=== PATIENT | male | born 1950 | race Caucasian/White ===

== ENCOUNTER 2017-06-11 08:07 | Inpatient (IN) | payer MEDICARE, BC ==
[~2017-06-11] VITALS: Ht 180.3 cm; Wt 91.5 kg
--- NOTE | ~2017-06-11 | CN ---
PATIENT NAME:KRUNAL TAY MEDICAL RECORD: [id number] : 54 LOCATION:D. D.2110 ADMIT DATE: 06/11/17 ACCOUNT: [id number] CONSULTING PHYSICIAN: GALINA CUENCA MD REFERRING PHYSICIAN: JESSICA KARIMI MD DATE OF CONSULTATION: 06/11/2017 CARDIOLOGY CONSULTATION DIAGNOSES: 1. Syncope. 2. Atrial fibrillation. 3. Aortic valve replacement, tissue prosthesis. 4. Hypertension. HISTORY OF PRESENT ILLNESS: Mr. Tay is known to us with a past history of atrial fibrillation, rate controlled with carvedilol, who presents with an episode of syncope. He went to the bathroom, he was washing his hands, and was found down by his . He was actually only out for a few seconds. He did not have any chest pain or chest discomfort. His EKG is with no ST-T changes. He recently had an echocardiogram in our office revealing a normal ejection fraction of 55%. Tissue valve is in the mitral and aortic position with normal structure and function; however, there was severe aortic insufficiency. REVIEW OF SYSTEMS: The patient reports easy bruising but reports no swollen glands. The patient reports no fever, no night sweats, no significant weight gain, no significant weight loss. No significant exercise tolerance. The patient reports no dry eyes, no irritation, no vision change. Patient reports no difficulty hearing and no ear pain. Patient reports no frequent nose bleeds or nose and sinus problems. Patient reports on arm pain on exertion. No shortness of breath while lying down. No history of heart murmur. Patient reports no cough, no wheezing or coughing up blood. Patient reports no abdominal pain, no vomiting. Normal appetite. No diarrhea and not vomiting blood. No nausea and no constipation. Patient reports no incontinence. No difficulty urinating. No hematuria. No increased frequency. Patient reports no muscle aches. No weakness, no arthralgias, no back pain. No swelling of the extremities. Patient reports no abnormal mole, no jaundice, no rashes. Reports no loss of consciousness. No weakness and no numbness. No seizures, dizziness, or headaches. The patient reports no depression, no sleep disturbance, feeling safe in a relationship and no alcohol abuse. Patient reports on fatigue. Reports no runny nose or sinus pressure. No itching, no hives, and no frequent sneezing. PHYSICAL EXAMINATION: GENERAL APPEARANCE: Well-nourished, well-developed, appears stated age. Level of distress, comfortable. PSYCHIATRIC: Mental status, alert, normal affect. Orientation, oriented to time, place and person. EYES: Lids and conjunctiva, noninjected. No discharge, no pallor. ENT: Lips, teeth, gums, normal dentition. Oropharynx, no cyanosis, no pallor. NECK: Carotid arteries, bilateral normal upstroke, no bruits, no thrills. JUGULAR VEINS: No jugular venous pressure or distention. CERVICAL LYMPH NODES: Nontender, nonenlarged. THYROID: Not enlarged. Nontender. No nodules. LUNGS: Respiratory effort, unlabored. CONSULT REPORT [id number] KRUNAL TAY CHEST: Normal curvature. No thoracic deformity. No chest wall tenderness. Percussion, resonant. Auscultation, clear. No wheezes, no rales, no rhonchi. CARDIOVASCULAR: Precordial exam, nondisplaced. No heaves or pericardial thrills. Rate and rhythm, regular. Heart sounds, normal S1, normal S2. No S3, no gallop, no rub. Systolic murmur, not heard. Diastolic murmur, not heard. EXTREMITIES: No cyanosis, no edema. Peripheral pulses, full and equal in all extremities, except as noted. No bruits appreciated. ABDOMEN: Soft, nondistended. Normal aorta. No bruit. Nontender. No masses. Liver, nontender, no hepatomegaly. Spleen, nontender, no splenomegaly. MUSCULOSKELETAL: No joint tenderness. No joint swelling. No erythema. NEUROLOGICAL: Normal gait, normal strength, normal tone. SKIN: Warm and dry. OVERALL IMPRESSION: At this time, syncope, unknown etiology, very well may have been dysrhythmic in nature. We would agree with admitting for telemetry monitoring for at least overnight. The aortic insufficiency itself would not cause syncope and he is overall asymptomatic from the aortic insufficiency. At this time, as long as significant dysrhythmias were present and no bradycardia is present, no other cardiac workup or treatment is necessary. TRANSINT:[id number] Voice Confirmation ID: [id number] DOCUMENT ID: [id number] GALINA CUENCA MD at 1202 CC: [id number] DICTATION DATE: 06/11/17 1340 DIRECTOR OF WORKFORCE DEVELOPMENT: 06/11/17 1408 ADM IN [facility] [address] [place] [address]
[~2017-06-11 08:07] MED LIST: BAYER CHEWABLE81 MG PO; COREG12.5 MG PO; CYMBALTA30 MG PO; DURAGESIC1 PATCH .7 TRANSDERM; HYDROCODON-ACE1 EAC7 PO; LIPITOR10 MG; LOPRESSOR25 MG PO; MULTIPLE VITAMI1 TA1 PO; PROSCAR5 MG PO; TIKOSYN500 MCG PO; XARELTO15 MG PO
[2017-06-11 08:39] LABS: BASOPHILS 0.4 % (0-2); EOSINOPHILS 3.7 % (0-7); HEMATOCRIT 40.2 % (42.0-54.0); HEMOGLOBIN 13.4 g/dL (13.5-17.5); IMMATURE GRANULOCYTES 0.3 % (0-5); LYMPHOCYTES 15.4 % (15-50); MCHC 33.3 g/dL (31.0-37.0); MCV 90.1 fL (80.0-100.0); MONOCYTES 8.8 % (2-11); NEUTROPHILS 71.4 % (40-80); RBC 4.46 10x6/uL (4.20-6.10); RDW 16.4 % (11.5-14.5); WBC 9.6 10x3/uL (4.8-10.8)
[2017-06-11 08:44] LABS: PLATELET COUNT 161 10x3/uL (130-400)
[2017-06-11 09:13] LABS: ALBUMIN 3.9 g/dL (3.4-5.0); ALKALINE PHOSPHATASE 71 U/L (46-116); ALT (SGPT) 56 U/L (10-68); BILIRUBIN - TOTAL 2.84 mg/dL (0.2-1.3); CALC OSMOLALITY 281 mosm/kg (275-300); CALCIUM 9.1 mg/dL (8.5-10.1); CARBON DIOXIDE 24.7 mmol/L (21.0-32.0); CHLORIDE - SERUM 106 mmol/L (98-107); GLUCOSE 110 mg/dL (74-106); POTASSIUM - SERUM 4.1 mmol/L (3.5-5.1); SODIUM 140 mmol/L (136-145); UREA NITROGEN 19 mg/dL (7-18); eGFR NON AFRICAN AMERICAN 80 mL/min (90-120)
[2017-06-11 09:20] LABS: APTT 37.1 SECONDS (22.8-39.4)
[2017-06-11 09:32] LABS: INR 1.68 (0.85-1.17); PROTIME 19.3 SECONDS (11.6-15.0)
[2017-06-11 09:33] LABS: D-DIMER-QUANTITATIVE 0.56 ug/mLFEU (0.20-0.54)
[2017-06-11 09:36] LABS: CKMB 2.6 U/L (0.0-3.6); CREATINE KINASE 111 UL (21-232); PRO BNP 1358 pg/mL (0-125); TROPONIN-I 0.034 ng/mL (0.000-0.060)
[2017-06-11 12:07] LABS: CKMB 2.8 U/L (0.0-3.6); CREATINE KINASE 117 UL (21-232); TROPONIN-I 0.037 ng/mL (0.000-0.060)
[2017-06-11 15:06] VITALS: Ht 180.3 cm; Wt 91.5 kg
[2017-06-11 17:48] LABS: CKMB 3.2 U/L (0.0-3.6); CREATINE KINASE 119 UL (21-232)
[2017-06-11 23:31] LABS: CKMB 2.3 U/L (0.0-3.6); CREATINE KINASE 112 UL (21-232); TROPONIN-I < 0.017 ng/mL (0.000-0.060)
[2017-06-12 04:00] VITALS: BP 105/56
[2017-06-12 04:40] LABS: BASOPHILS 0.3 % (0-2); EOSINOPHILS 3.8 % (0-7); HEMATOCRIT 36.8 % (42.0-54.0); IMMATURE GRANULOCYTES 0.3 % (0-5); LYMPHOCYTES 23.8 % (15-50); MCH 29.7 pg (26.0-34.0); MCHC 32.6 g/dL (31.0-37.0); MCV 91.1 fL (80.0-100.0); MEAN PLATELET VOLUME 10.1 fL (7.4-10.4); MONOCYTES 9.7 % (2-11); NEUTROPHILS 62.1 % (40-80); PLATELET COUNT 141 10x3/uL (130-400); RBC 4.04 10x6/uL (4.20-6.10); RDW 16.3 % (11.5-14.5)
[2017-06-12 05:17] LABS: ALBUMIN 3.5 g/dL (3.4-5.0); ALKALINE PHOSPHATASE 65 U/L (46-116); ALT (SGPT) 45 U/L (10-68); BILIRUBIN - TOTAL 2.32 mg/dL (0.2-1.3); CALC OSMOLALITY 269 mosm/kg (275-300); CALCIUM 8.7 mg/dL (8.5-10.1); CARBON DIOXIDE 24.2 mmol/L (21.0-32.0); CHLORIDE - SERUM 101 mmol/L (98-107); CREATININE - SERUM 0.8 mg/dL (0.6-1.3); GLUCOSE 90 mg/dL (74-106); POTASSIUM - SERUM 3.9 mmol/L (3.5-5.1); PROTEIN - SERUM 7.1 g/dL (6.4-8.2); SODIUM 134 mmol/L (136-145); UREA NITROGEN 19 mg/dL (7-18); eGFR NON AFRICAN AMERICAN > 90 mL/min (90-120)
[2017-06-12 09:47] VITALS: BP 112/59
[2017-06-12 12:42] VITALS: BP 98/73
[2017-06-12 18:13] VITALS: BP 129/72
[2017-06-12 21:35] VITALS: BP 111/69
[2017-06-13 01:24] VITALS: BP 97/58
[2017-06-13 05:58] LABS: BASOPHILS 0.4 % (0-2); EOSINOPHILS 4.2 % (0-7); HEMATOCRIT 37.6 % (42.0-54.0); HEMOGLOBIN 12.6 g/dL (13.5-17.5); IMMATURE GRANULOCYTES 0.3 % (0-5); LYMPHOCYTES 21.8 % (15-50); MCH 30.1 pg (26.0-34.0); MCHC 33.5 g/dL (31.0-37.0); MCV 89.7 fL (80.0-100.0); MEAN PLATELET VOLUME 10.3 fL (7.4-10.4); MONOCYTES 11.5 % (2-11); NEUTROPHILS 61.8 % (40-80); PLATELET COUNT 135 10x3/uL (130-400); RBC 4.19 10x6/uL (4.20-6.10); RDW 16.3 % (11.5-14.5); WBC 7.2 10x3/uL (4.8-10.8)
[2017-06-13 06:30] VITALS: BP 103/61
[2017-06-13 06:32] LABS: ALBUMIN 3.6 g/dL (3.4-5.0); ALKALINE PHOSPHATASE 63 U/L (46-116); ALT (SGPT) 46 U/L (10-68); CALC OSMOLALITY 280 mosm/kg (275-300); CALCIUM 8.8 mg/dL (8.5-10.1); CARBON DIOXIDE 23.2 mmol/L (21.0-32.0); CHLORIDE - SERUM 106 mmol/L (98-107); CREATININE - SERUM 0.8 mg/dL (0.6-1.3); GLUCOSE 94 mg/dL (74-106); POTASSIUM - SERUM 3.9 mmol/L (3.5-5.1); PROTEIN - SERUM 7.5 g/dL (6.4-8.2); SODIUM 140 mmol/L (136-145); UREA NITROGEN 18 mg/dL (7-18); eGFR NON AFRICAN AMERICAN > 90 mL/min (90-120)
[2017-06-13 09:10] VITALS: BP 129/72
[2017-06-13 12:42] VITALS: BP 128/76
[2017-06-13 16:26] VITALS: BP 106/67
[2017-06-13 20:43] VITALS: BP 121/56
[2017-06-14 00:30] VITALS: BP 117/67
[2017-06-14 09:19] VITALS: BP 113/76
[2017-06-14 11:39] VITALS: BP 122/77
[2017-06-14 15:32] VITALS: BP 116/63
[2017-06-14 19:00] VITALS: BP 153/63
[2017-06-15 04:00] VITALS: BP 99/61
[2017-06-15 08:14] VITALS: BP 119/76
[2017-06-15 11:53] VITALS: BP 98/54
[2017-06-15] MEDS ORDERED: COREG12.5 MG PO (13:36)
== END 2017-06-15 15:01 | disposition home or self-care (01) | DRG 310 ==
LOC: D.ER 08:07 → D.EDHOLD 10:37 → D.M2 10:37
PROVIDERS: Family Medicine; Internal Medicine Nephrology
DX: I49.5 Sick sinus syndrome (principal); Z79.01 Long term (current) use of anticoagulants; I42.9 Cardiomyopathy, unspecified; Z95.2 Presence of prosthetic heart valve; I10 Essential (primary) hypertension; E80.6 Other disorders of bilirubin metabolism; E78.5 Hyperlipidemia, unspecified

== ENCOUNTER 2017-09-06 11:32 | Inpatient (IN) | payer MEDICARE, BC ==
[~2017-09-06] VITALS: Ht 180.3 cm; Wt 104.6 kg
[2017-09-06] VITALS (14 sets, daily range): BP systolic 88–132; BP diastolic 52–76; BMI 29.7
--- NOTE | ~2017-09-06 | HP ---
PATIENT: KRUNAL TAY MEDICAL RECORD: [id number] ACCOUNT: [id number] LOCATION:[facility] TomasaCV06 : 54 ADMISSION DATE: 09/06/17 HISTORY AND PHYSICAL EXAMINATION DIAGNOSES: 1. Ventricular tachycardia arrest. 2. Valvular heart disease, status post valve replacement. HISTORY OF PRESENT ILLNESS: Mr. Tay has no history of ischemic heart disease. He has been having episodes of syncope. He presented to the Emergency Room with being episodes of lightheadedness while in the Emergency Room and on the monitor, he had ventricular tachycardia degenerating into V-fib and recurrent syncope, with this he received 1 shock restoring sinus rhythm. He has sinus bradycardia in the 60 range at this point. He does not have a history of ischemic heart disease. He had a cardiac catheterization prior to valve replacement approximately 10 years ago, but has not had a workup for ischemic heart disease. PHYSICAL EXAMINATION: GENERAL APPEARANCE: Well-nourished, well-developed, appears stated age. Level of distress, comfortable. PSYCHIATRIC: Mental status, alert, normal affect. Orientation, oriented to time, place and person. EYES: Lids and conjunctiva, noninjected. No discharge, no pallor. ENT: Lips, teeth, gums, normal dentition. Oropharynx, no cyanosis, no pallor. NECK: Carotid arteries, bilateral normal upstroke, no bruits, no thrills. JUGULAR VEINS: No jugular venous pressure or distention. CERVICAL LYMPH NODES: Nontender, nonenlarged. THYROID: Not enlarged. Nontender. No nodules. LUNGS: Respiratory effort, unlabored. CHEST: Normal curvature. No thoracic deformity. No chest wall tenderness. Percussion, resonant. Auscultation, clear. No wheezes, no rales, no rhonchi. CARDIOVASCULAR: Precordial exam, nondisplaced. No heaves or pericardial thrills. Rate and rhythm, regular. Heart sounds, normal S1, normal S2. No S3, no gallop, no rub. Systolic murmur, not heard. Diastolic murmur, not heard. EXTREMITIES: No cyanosis, no edema. Peripheral pulses, full and equal in all extremities, except as noted. No bruits appreciated. ABDOMEN: Soft, nondistended. Normal aorta. No bruit. Nontender. No masses. Liver, nontender, no hepatomegaly. Spleen, nontender, no splenomegaly. MUSCULOSKELETAL: No joint tenderness. No joint swelling. No erythema. NEUROLOGICAL: Normal gait, normal strength, normal tone. SKIN: Warm and dry. OVERALL IMPRESSION: V-tach to V-fib arrest, we will load him with Cordarone. As long as he does not become too bradycardic, we will plan for cardiac catheterization in the a.m. as he took Xarelto today, we will hold the Xarelto. TRANSINT:[id number] Voice Confirmation ID: [id number] DOCUMENT ID: [id number] HISTORY AND PHYSICAL [id number] KRUNAL TAY JEFFREY MD at 1705 CC: [id number] DICTATION DATE: 09/06/17 1244 ARMORER TECHNICIAN: 09/06/17 1317 ADM IN [facility] [address] [place] [address]
--- NOTE | ~2017-09-06 | OP ---
PATIENT NAME: KRUNAL JAMES MEDICAL RECORD: [id number] :54 LOCATION:[facility] ADMISSION DATE:09/06/17 SURGEON: GALINA CUENCA MD DATE OF OPERATION: 09/08/2017 PROCEDURES: 1. PTCA stent left circumflex. 2. Selective coronary angiography. 3. DC cardioversion. INDICATION: Angina, ventricular tachycardia, atrial fibrillation, coronary artery disease, and cardiomyopathy. PROCEDURE IN DETAIL: After informed consent was obtained and after detailed explanation of risks, benefits as well as alternative therapies, the patient elected to proceed with angiogram and angioplasty. The right femoral area was prepped and draped in normal sterile fashion. Right femoral artery was cannulated via modified Seldinger technique with placement of 6-Swedish sheath. All catheters exchanged through this sheath. FINDINGS: The left circumflex has a 70% to 80% stenosis in the mid vessel. This was addressed with a 2.75 x 12 mm Integrity stent. Result was 0% residual stenosis. The patient was in atrial fibrillation. He received 1 shock at 275 joules restoring sinus rhythm. OVERALL IMPRESSION: 1. Successful PTCA stent of the left circumflex going from 80% initial stenosis to 0% residual. 2. Successful DC cardioversion from atrial fibrillation to sinus rhythm. TRANSINT:[id number] Voice Confirmation ID: [id number] DOCUMENT ID: [id number] GALINA CUENCA MD at 1705 CC: [id number] DICTATION DATE: 09/08/17 1003 RADIOLOGY PHYSICIAN: 09/08/17 1249 ADM IN [place] [id number] [place] [address]
--- NOTE | ~2017-09-06 | EC ---
PATIENT:KRUNAL JAMES DATE OF SERVICE: 09/06/17 SEX: M MEDICAL RECORD: [id number] DATE OF : 54 LOCATION:[place] [address] AGE OF PATIENT: 66 ADMISSION DATE: 09/06/17 REFERRING PHYSICIAN: INTERPRETING PHYSICIAN: GALINA LOCKHART MD ECHOCARDIOGRAM REPORT ECHO CHARGES 4 ECHO COMPLETE Date: 09/07 CLINICAL DIAGNOSIS: V TACH HX OF AVR/MVR ECHOCARDIOGRAPHIC MEASUREMENTS (adult normal given) AC root (d.<3.7cm) 4.4 cm LV Septum d (<1.2 cm> 1.6 cm Valve Excursion 1.8 cm LV Septum (systole) 1.9 cm Left Atria (s.<4.0cm> 4.9 cm LVPW d(<1.2cm) 1.6 cm RV (d.<2.3cm) 6.8 cm LVPW (sytole) 2.1 cm LV diastole(<5.6CM) 6.4 cm MV E-F(>70mm/sec) cm LV systole 5.1 cm LVOT Diameter 2.3 cm MV exc.(>10mm) 1.7 cm Est.ejection fraction (50-75%) % DOPPLER: LVIT cm/sec A 165 cm/sec E 78.0 cm/sec LA cm/sec RVSP 64 mmHg LVOT 112 cm/sec AOP1/2T m/s Asc. Ao 211 cm/sec RVOT 61 cm/sec RA cm/sec PA 154 cm/sec AV Gradient Peak 17.76mmHg AV Mean 9.48 mmHg AV Area 2.2 cm MV Gradient Peak 26.68mmHg MV Mean 8.01 mmHg MV Area cm COMMENTS: Pharmacy Clinical Specialist: Karine PALACIO Co Founder And Chief Strategy Officer: 1 Dr. Lockhart TAPE# PACS Pericardial Effusion Y DATE OF SERVICE: 09/07/2017 FINDINGS: 1. Left ventricular chamber size is mildly dilated. Left ventricular systolic function is moderately reduced. Overall ejection fraction in the 30% range. 2. Left atrium, right atrium, and right ventricular chamber sizes are zpbu-qs-psdwrwxcqa dilated. 3. Valvular structures: Aortic and mitral valves are replaced with tissue prosthesis. Both have normal structure and function in this position. 4. Doppler interrogation reveals dtarcfrh-gv-jhpxgl tricuspid regurgitation. ECHOCARDIOGRAM REPORT [id number] KRUNAL JAMES No other valvular insufficiency or stenosis. Pulmonary systolic pressure is elevated, estimated at 64 mmHg. 5. No evidence of pericardial effusion or left ventricular thrombus. TRANSINT:[id number] Voice Confirmation ID: [id number] DOCUMENT ID: [id number] GALINA LOCKHART MD at 1705 CC: [id number] DICTATION DATE: 09/08/17 1248 GROUP CAPTAIN: 09/08/17 1310 ADM IN [place] [address] [place] [address]
--- NOTE | ~2017-09-06 | HEMODYNAMI ---
PATIENT:KRUNAL JAMES MEDICAL RECORD: [id number] : 54 LOCATION[facility] [address] [id number] ADMISSION DATE: 09/06/17 Generatedon:09/08/201710:04 Patient name: KRUNAL JAMES Patient #: [id number] SSN: : 1950 Date of study: 09/08/2017 Page: Of Hemodynamic Procedure Report Patient Data Patient Demographics Procedure consent was obtained First Name: KRUNAL Gender: Male Last Name: ERIKA : 1950 Patient #: [id number] Age: 66 year(s) Race: Unknown Additional ID: [id number] Contact details Address: [address] [place] [address] State: [place] City: [place] Zip code: [address] Past Medical History Allergies: No known allergies Admission Admission Data Admission Date: 09/06/2017 Admission Time: 14:17 Admit Source: Other Room #: D[facility] Lab Results Lab Result Date: 09/07/2017 Lab Result Time: 2:41 Biochemistry Name Units Result Min Max BUN mg/dl 17 --(---*)-- 7 18 Creatinine mg/dl 1.2 --(---*)-- 0.6 1.3 CBC Name Units Result Min Max Hematocrit % 39.7 -*(----)-- 42 54 Hemoglobin g/dl 13 -*(----)-- 13.5 17.5 Coagulation Name Units Result Min Max INR units 1.84 --(----)-* 0.85 1.17 PT sec 20.7 --(----)-* 11.6 15 Procedure Procedure Types Cath Procedure Diagnostic Procedure Cardioversion External PCI Procedure Coronary Stent Coronary Stent Initial Procedure Description Procedure Date Procedure Date: 09/08/2017 Procedure Start Time: 9:47 Procedure End Time: 10:03 Procedure Staff Name Function Sourav Lockhart MD Performing Physician Carrillo Calle RT Monitor Raymond Estrada RN Nurse Angela Rudd RT Scrub Procedure Data Cath Procedure Fluoroscopy Diagnostic fluoroscopy Total fluoroscopy Time: 1.6 time: 1.6 min min Diagnostic fluoroscopy Total fluoroscopy dose: 129 dose: 129 mGy mGy Contrast Material Contrast Material Type Amount (ml) Isovue 300 40 Entry Location Entry Primary Successful Side Size Upsize Upsize Entry Closure Succes sful Closure Location (Fr) 1 (Fr) 2 (Fr) Remarks Device Remarks Femoral Left 6 Fr Exoseal artery Short Estimated blood loss: 10 ml Procedure Complications No complications Procedure Medications Medication Administration Route Dosage Oxygen NC 2 l/min Heparin Flush Bag added to field 2 bags (1000units/500ml NS) 0.9% NaCl I.V. 100 ml/hr Fentanyl I.V. 50 mcg Versed I.V. 1 mg Fentanyl I.V. 50 mcg Versed I.V. 1 mg Fentanyl I.V. 50 mcg Heparin Bolus I.V. 4000 units Fentanyl I.V. 50 mcg Hemodynamics Rest Heart Rate: 116 (bpm) Snapshots Pre Cath Intra NCS Post Cath Vital Signs Time Heart Resp SPO2 etCO2 NIBP Rhythm Pain Sedation Rate (ipm) (%) (mmHg) (mmHg) Status Level (bpm) 9:13:52 111 28 99 0 99/81(88) NSR 0 (11) 10(A) , No pain 9:18:28 106 21 98 0 110/70(94) NSR 0 (11) 10(A) , No pain 9:22:46 113 20 97 0 109/47(89) NSR 0 (11) 10(A) , No pain 9:36:03 104 18 97 0 108/76(93) NSR 0 (11) 10(A) , No pain 9:40:13 104 19 97 0 98/84(92) NSR 0 (11) 10(A) , No pain 9:44:17 110 19 98 0 98/87(95) NSR 0 (11) 10(A) , No pain 9:48:23 98 19 97 0 102/78(87) NSR 0 (11) 10(A) , No pain 9:52:33 95 17 97 0 101/72(84) NSR 0 (11) 9(A) , No pain 9:56:42 48 18 85 0 84/70(77) NSR 0 (11) 9(A) , No pain 10:00:42 44 18 92 0 101/80(94) NSR 0 (11) 9(A) , No pain Medications Time Medication Route Dose Verified Delivered Reason Notes Effectiveness by by 9:13:06 Oxygen NC 2 Sourav Andrade Per physician l/min Chantelle Estrada RN 9:13:13 Heparin Flush added 2 Sourav Andrade used for Bag to bags Chantelle Estrada RN procedure (1000units/500ml field NS) 9:13:22 0.9% NaCl I.V. 100 Sourav Raymond Per physician ml/hr Chantelle Estrada RN 9:45:11 Fentanyl I.V. 50 Sourav Raymond for sedation mcg Chantelle Estrada RN 9:45:18 Versed I.V. 1 mg Sourav Raymond for sedation Chantelle Estrada RN 9:48:47 Fentanyl I.V. 50 Sourav Raymond for sedation mcg Chantelle Estrada RN 9:48:50 Versed I.V. 1 mg Sourav Rosalesy for sedation Chantelle Estrada RN 9:51:21 Fentanyl I.V. 50 Sourav Raymond for sedation mcg Chantelle Estrada RN 9:51:45 Heparin Bolus I.V. 4000 Sourav Raymond for units Chantelle Estrada RN anticoagulation 9:55:38 Fentanyl I.V. 50 Sourav Raymond for sedation mcg Chantelle Estrada RN Procedure Log Time Note 8:42:23 Time tracking: Regular hours (M-F 7:00 - 5:00) 8:42:27 Plan of Care:Hemodynamics will remain stable., Cardiac rhythm will remain stable., Comfort level will be maintained., Respiratory function will remain adequate., Patient/ family verbilizes understanding of procedure., Procedure tolerated without complication., Recovers from procedure without complications.. 8:50:23 Sourav Lockhart MD sent for patient. Start room use. 9:06:57 Patient received from CVICU to CCL 3 Alert and oriented. Tansferred to table in Supine position. 9:06:58 Warm blankets applied, and heidi hugger turned on for patient comfort. 9:06:58 Correct patient and procedure confirmed by team. 9:06:59 Signed procedure consent form obtained from patient. 9:07:00 ECG and BP/O2 sat monitors applied to patient. 9:07:01 Full Disclosure recording started 9:12:42 Vital chart was started 9:13:06 Oxygen 2 l/min NC was administered by Raymond Estrada RN; Per physician; 9:13:13 Heparin Flush Bag (1000units/500ml NS) 2 bags added to field was administered by Raymond Estrada RN; used for procedure; 9:13:22 0.9% NaCl 100 ml/hr I.V. was administered by Raymond Estrada RN; Per physician; 9:17:35 Baseline sample Acquired. 9:18:06 Rhythm: atrial fibrillation 9:18:16 H&P Date Dictated: 09/07/2017 Within 30 days and on chart.. 9:18:16 Pre-procedure instructions explained to patient. 9:18:17 Pre-op teaching completed and patient verbalized understanding. 9:18:19 Family in patients room. 9:18:21 Patient NPO since Midnight. 9:18:22 Is the patient allergic to Iodine/contrast media? No. 9:18:26 Is patient on blood thinner?Yes 9:18:28 ACC The patient was administered the following blood thiners within the last 24 hours: ACCPlavix 9:18:30 Patient diabetic? No. 9:18:33 Previous problem with sedation/anesthesia? No ? 9:18:34 Snore? Yes 9:18:36 Sleep apnea? No 9:18:37 Deviated septum? No 9:18:37 Opens mouth fully? Yes 9:18:38 Sticks out tongue? Yes 9:18:39 Airway obstruction? No ? 9:18:41 Dentures? No ? 9:18:44 Pre procedure: left dorsailis pedis pulse 1+ Palpable, but thready & weak; easily obliterated 9:18:46 Patient pain scale 0/10 ?. 9:19:13 Radial pulse too weak for access 9:19:23 IV patent on arrival in right antecubital with 0.9% NaCl at [facility]. 9:19:26 Lab results completed and on chart. 9:19:29 Left groin area was prepped with chlora-prep and draped in sterile fashion 9:19:30 Alarms reviewed by R. N. 9:19:31 Sharps counted by scrub and verified by R.N. 9:20:00 Tegaderm 4 x 4 (1626W) opened to sterile field. 9:20:01 ACIST Manifold (44766) opened to sterile field. 9:20:02 ACIST Hand Control (86085) opened to sterile field. 9:20:03 ACIST Syringe (35188) opened to sterile field. 9:20:04 Medline Cath Pack ([id number]) opened to sterile field. 9:20:04 Bag Decanter (2002S) opened to sterile field. 9:20:06 DIAGNOSTIC WIRE .035 260cm J wire (907862) opened to sterile field. 9:22:53 Use device set TAUTH PCI 9:23:00 SHEATH Prelude 6Fr 0.035 (SDG-0P-64-035) opened to sterile field. 9:23:02 INFLATOR Merit BasixCompak (HI4415) opened to sterile field. 9:23:12 CHOICE PT Extra Support 182cm wire ([id number]) opened to sterile field. 9:31:13 Vital chart was stopped 9:31:14 Vital chart was started 9:39:41 Zero performed for pressure channel P1 9:44:54 --------ALL STOP TIME OUT------ 9:44:55 Final Timeout: patient, procedure, and site verified with staff and physician. All members of the team are in agreement. 9:44:58 Left groin site verified by team. 9:45:01 Physical assessment completed. ASA score P 3 - A patient with severe systemic disease as per Sourav Lockhart MD. 9:45:04 Sedation plan: IV Moderate Sedation Medication:Versed, Fentanyl 9:45:11 Fentanyl 50 mcg I.V. was administered by Raymond Estrada RN; for sedation; 9:45:18 Versed 1 mg I.V. was administered by Raymond Estrada RN; for sedation; 9:46:39 Procedure started. 9:47:00 Local anesthetic to left femerol artery with Lidocaine 2% by Sourav Lockhart MD.INITIAL ACCESS ONLY 9:47:49 GUIDE 6FR EBU 4.5 catheter ([id number]) opened to sterile field. 9:48:06 A 6 Fr Short sheath was inserted into the Left Femoral artery 9:48:47 Fentanyl 50 mcg I.V. was administered by Raymond Estrada RN; for sedation; 9:48:50 Versed 1 mg I.V. was administered by Raymond Estrada RN; for sedation; 9:49:29 6 Fr EBU 4.5 guide catheter was inserted over the wire 9:50:46 Choice PT XS wire advanced. 9:51:02 Wire advanced across lesion. 9:51:21 Fentanyl 50 mcg I.V. was administered by Raymond Estrada RN; for sedation; 9:51:42 Place stent Inflation Number: 1 A INTEGRITY RX 2.75 x 12 stent ([id number]) was prepped and advanced across the Mid CX. The stent was deployed at 13 OLIM[place]IA for 0:10 (min:sec). 9:51:45 Heparin Bolus 4000 units I.V. was administered by Raymond Estrada RN; for anticoagulation; 9:52:40 Stent catheter was removed intact over wire. 9:52:41 Wire removed. 9:52:42 Guide catheter removed. 9:54:12 Pt had previously placed defib pads placed on chest and side. Preparing for Cardioverison. 9:55:38 Fentanyl 50 mcg I.V. was administered by Raymond Estrada RN; for sedation; 9:56:20 Defibrillator synced and charged to 275 Joules. 9:56:22 Shock delivered. 9:57:26 Patient cardioverted to sinus bradycardia. 9:59:01 EXOSEAL 6Fr (EX600) opened to sterile field. 9:59:12 Sheath removed intact; hemostasis achieved with Exoseal to the Left Femoral artery. 9:59:14 Procedure ended.(Physican Out) 9:59:34 Fluoroscopy time 01.60 minutes. 9:59:50 Fluoroscopy dose: 129 mGy 9:59:50 Flurop Dose total: 129 9:59:54 Contrast amount:Isovue 300 40ml. 9:59:55 Sharps counted by scrub and verified by R.N. 9:59:56 Insertion/operative site no bleeding no hematoma. 9:59:58 Post-op/insertion site Left Femoral artery dressed using a 4 x 4 and Tegaderm. 10:00:00 Post Procedure Pulses reassessed and unchanged 10:00:02 Post-procedure physical assessment completed. ASA score P 2 - A patient with mild systemic disease as per Sourav Lockhart MD. 10:00:05 Post procedure rhythm: sinus bradycardia 10:00:07 Estimated blood loss: 10 ml 10:00:10 Post procedure instruction explained to patient.Patient verbalizes understanding. 10:00:10 Patient needs reinforcement of post procedure teaching. 10:00:23 Procedure type changed to Cath procedure, Diagnostic procedure, Cardioversion External, PCI procedure, Coronary Stent, Coronary Stent Initial 10:00:26 Procedure Complication : No complications 10:00:51 Procedure and supply charges have been captured, reviewed, submitted and are correct. 10:01:16 See physician's report for complete and final results. 10:01:18 Report given to CVICU. 10:01:20 Patient transfered to CVICU with Bed. 10:03:47 Procedure ended. 10:03:47 Full Disclosure recording stopped 10:04:03 End room use (Document Last) 10:04:37 Vital chart was stopped Intervention Summary Intervention Notes Time ActionType Lesion and Equipment Action# Pressure Duration Attributes Used 9:51:42 Place stent Mid CX INTEGRITY RX 1 13 00:10 2.75 x 12 stent ([id number]) Device Usage Item Name Manufacture Quantity Catalog Number Hospital Part Current Minimal Lot# / Charge Number Stock Stock Serial# Code Tegaderm 4 x 4 3M 1 1626W [id number] [id number] 179635 5 (1626W) ACIST Manifold Acist 1 00551 562413 743610 382600 5 (10335) [employer] ACIST Hand Acist 1 50716 744802 624343 378768 5 Control (30398) [employer] ACIST Syringe Acist 1 05943 599066 189094 325174 20 (15372) [employer] Medline Cath Cardinal 1 [id number] 767882 68134 073673 5 Pack Health ([id number]) Bag Decanter Microtek 1 2001S 460827 38184 697303 5 (2001S) Medical Inc. DIAGNOSTIC WIRE St Kash 1 195995 929838 066563 695304 30 .035 260cm J wire (603856) SHEATH Prelude Merit 1 [id number]-3A-[id number] 746433 3296029 739559 5 6Fr 0.035 Medical (FET-3D-38-035) INFLATOR Merit Merit 1 QU1924 277828 606798 004669 [address] [facility] ([place] CHOICE PT Extra [place] 1 [id number] 238974 316414 135153 5 Support 182cm Scientific wire ([id number]) GUIDE 6FR EBU Medtronic 1 [id number] 090105 56389 461395 0 4.5 catheter (ZM2ELY24) INTEGRITY RX Medtronic 1 [id number] 039560 591213 779878 5 [id number] 2.75 x 12 stent ([id number]) EXOSEAL 6Fr Cardinal 1 EX600 087244 601748 673033 10 (EX600) Health Signature Audit Trinity Stage Time Signature Unsigned Intra-Procedure 09/08/2017 Carrillo Calle 10:04:23 AM RT(R) Signatures Monitor : Carrillo Calle RT Signature : Date : Time : [address] [address]
--- NOTE | ~2017-09-06 | OP ---
PATIENT NAME: KRUNAL JAMES MEDICAL RECORD: [id number] :54 LOCATION:[facility] ADMISSION DATE:09/06/17 SURGEON: GALINA CUENCA MD DATE OF OPERATION: 09/07/2017 PROCEDURES: 1. PTCA and stent of LAD. 2. Intravascular ultrasound of the LAD. 3. Left heart catheterization. 4. Selective coronary angiography. INDICATION: Ventricular tachycardia, arrest, angina. PROCEDURE IN DETAIL: After informed consent was obtained and after detailed explanation of risks, benefits as well as alternative therapies, the patient elected to proceed with angiogram and angioplasty. The right femoral area was prepped and draped in normal sterile fashion. The right femoral artery was cannulated via modified Seldinger technique with placement of a 6-Namibian sheath. All catheters exchanged through this sheath. FINDINGS: The left ventriculogram was not performed secondary to inability to cross the prosthetic aortic valve. SELECTIVE CORONARY ANGIOGRAPHY: 1. Left main showed no significant angiographic disease. 2. Left anterior descending has greater than 85% stenosis in the proximal vessel confirmed by intravascular ultrasound. 3. Left circumflex has 70% to 80% stenosis in the mid vessel. 4. Right coronary has mild irregularities, but no flow-limiting stenosis. PTCA AND STENT OF THE LAD: The stent used is a 3.0 x 18 mm Integrity. Result was 0% residual stenosis. OVERALL IMPRESSION: Successful PTCA and stent of the LAD going from 85% initial stenosis to 0% residual. Plan for PTCA and stent of the left circumflex in the near future. TRANSINT:[id number] Voice Confirmation ID: [id number] DOCUMENT ID: [id number] GALINA CUENCA MD at 1705 CC: [id number] DICTATION DATE: 09/07/17 1305 PRINCIPAL MILITARY ANALYST: 09/07/17 1409 ADM IN [id number] [place] [address]
--- NOTE | ~2017-09-06 | DS ---
PATIENT:KRUNAL TAY :54 MEDICAL RECORD: [id number] DISCHARGE SUMMARY ADMISSION DATE: 09/06/17 DISCHARGE DATE: 09/09/17 DIAGNOSES: 1. Angina. 2. Ventricular tachycardia. 3. Atrial fibrillation. 4. Coronary artery disease. 5. Percutaneous transluminal coronary angioplasty stent left anterior descending and circumflex this admission. HOSPITAL COURSE: Mr. Tay presents with ventricular tachycardia, found to have 2-vessel coronary artery disease, underwent 2-vessel PTCA and stent of the LAD and circumflex complicated only by an episode of atrial fibrillation. His heart rate stabilized with Cordarone, was discharged home with the addition of aspirin, Plavix and Cordarone 200 mg b.i.d. Will follow up with [facility] in 1 month. TRANSINT:[id number] Voice Confirmation ID: [id number] DOCUMENT ID: [id number] GALINA CUENCA MD at 1810 CC: [id number] DICTATION DATE: 09/09/17 09 PATTERN ILLUSTRATOR: 09/09/17 1107 DIS IN 09/09/17 [facility] [address] [place] [address]
--- NOTE | ~2017-09-06 | HEMODYNAMI ---
PATIENT:KRUNAL JAMES MEDICAL RECORD: [id number] : 54 LOCATION:[facility] [address] [id number] ADMISSION DATE: 09/06/17 Generatedon:09/07/201713:20 Patient name: KRUNAL JAMES Patient #: [id number] SSN: : 1950 Date of study: 09/07/2017 Page: Of Hemodynamic Procedure Report Patient Data Patient Demographics Procedure consent was obtained First Name: KRUNAL Gender: Male Last Name: ERIKA : 1950 Patient #: [id number] Age: 66 year(s) Race: Unknown Additional ID: [id number] Contact details Address: [address] [place] [address] State: [place] City: [place] Zip code: [address] Past Medical History Allergies: No known allergies Admission Admission Data Admission Date: 09/06/2017 Admission Time: 14:17 Admit Source: Other Room #: D[facility] Lab Results Lab Result Date: 09/07/2017 Lab Result Time: 2:41 Biochemistry Name Units Result Min Max BUN mg/dl 17 --(---*)-- 7 18 Creatinine mg/dl 1.2 --(---*)-- 0.6 1.3 CBC Name Units Result Min Max Hematocrit % 39.7 -*(----)-- 42 54 Hemoglobin g/dl 13 -*(----)-- 13.5 17.5 Coagulation Name Units Result Min Max INR units 1.84 --(----)-* 0.85 1.17 PT sec 20.7 --(----)-* 11.6 15 Procedure Procedure Types Cath Procedure Diagnostic Procedure [facility] w/Coronaries FFR/IVUS Intra-Coronary IVUS Initial Sedation Charges Moderate Sedation up to 15 minutes PCI Procedure Coronary Stent Coronary Stent Initial Procedure Description Procedure Date Procedure Date: 09/07/2017 Procedure Start Time: 12:47 Procedure End Time: 13:06 Procedure Staff Name Function Sourav Lockhart MD Performing Physician Kristen Mendoza RT Monitor Joaquín Perdomo RT Scrub Nathan Rodriges RN Nurse Raymond Estrada RN Die Holder Procedure Data Cath Procedure Fluoroscopy Diagnostic fluoroscopy Total fluoroscopy Time: 4.4 time: 4.4 min min Diagnostic fluoroscopy Total fluoroscopy dose: 441 dose: 441 mGy mGy Contrast Material Contrast Material Type Amount (ml) Isovue 300 69 Entry Location Entry Primary Successful Side Size Upsize Upsize Entry Closure Succes sful Closure Location (Fr) 1 (Fr) 2 (Fr) Remarks Device Remarks Femoral Right 5 Fr 6 Fr Exoseal artery Short Estimated blood loss: 10 ml Diagnostic catheters Device Type Used For End Catheter Placement MULTIPACK Pigtail 5 Fr Procedure catheter MULTIPACK JL 4.0 5Fr Procedure catheter DIAGNOSTIC JL 5 5Fr Procedure catheter ([id number]) MULTIPACK 3DRC 5Fr Procedure catheter Procedure Complications No complications Procedure Medications Medication Administration Route Dosage 0.9% NaCl I.V. 100 ml/hr Oxygen NC 4 l/min Heparin Flush Bag added to field 2 bags (1000units/500ml NS) Lidocaine 2% added to field 20 Versed I.V. 1 mg Fentanyl I.V. 50 mcg Fentanyl I.V. 50 mcg Heparin Bolus I.V. 4000 units Integrilin (Bolus I.V. 8.5 ml 2mg/ml) Integrilin (Bolus wasted 1.5 ml 2mg/ml) Plavix P.O. 600 mg Hemodynamics Rest Pre Cath Intra NCS Post Cath Vital Signs Time Heart Resp SPO2 etCO2 NIBP (mmHg) Rhythm Pain Sedation Rate (ipm) (%) (mmHg) Status Level (bpm) 12:34:24 71 22 95 0 89/66(76) NSR 0 (11) 10(A) , No pain 12:39:13 64 35 95 0 118/83(97) NSR 0 (11) 10(A) , No pain 12:43:13 62 42 90 0 114/84(95) NSR 0 (11) 10(A) , No pain 12:47:14 60 25 91 0 100/71(85) NSR 0 (11) 10(A) , No pain 12:53:07 59 18 97 0 106/81(92) NSR 0 (11) 10(A) , No pain 12:57:37 63 19 94 0 119/85(105) NSR 0 (11) 10(A) , No pain 13:02:13 59 20 95 0 125/82(97) NSR 0 (11) 10(A) , No pain 13:06:17 58 22 95 0 113/72(99) NSR 0 (11) 10(A) , No pain Medications Time Medication Route Dose Verified Delivered Reason Notes Effectiveness by by 12:37:38 0.9% NaCl I.V. 100 Nathan Nathan Per physician ml/hr Zahira Rodriges RN RN 12:37:51 Oxygen NC 4 Nathan Nathan Per physician l/min Zahira Rodriges RN RN 12:38:05 Heparin Flush added 2 Nathan Nathan used for Bag to bags Zahira Rodriges procedure (1000units/500ml field LAWRENCE RN NS) 12:38:16 Lidocaine 2% added 20ml Nathan Nathan for local to vial Zahira Rodriges anesthetic field LAWRENCE RN 12:40:35 Versed I.V. 1 mg Nathan Nathan for sedation Zahira Rodriges RN RN 12:40:43 Fentanyl I.V. 50 Nathan Nathan for sedation mcg Zahira Rodriges RN RN 12:48:15 Fentanyl I.V. 50 Nathan Nathan for sedation mcg Zahira Rodriges RN RN 12:56:15 Heparin Bolus I.V. 4000 Nathan Nathan for units Zahira Rodriges anticoagulation RN RN 12:59:55 Integrilin I.V. 8.5 Nathan Nathan for (Bolus 2mg/ml) ml Zahira Rodriges antiplatelet RN RN therapy 13:00:07 Integrilin wasted 1.5 Nathan Nathan to sharp's (Bolus 2mg/ml) ml Zahira Rodriges RN RN 13:04:41 Plavix P.O. 600 Nathan Nathan for mg Zahira Rodriges antiplatelet RN RN therapy Procedure Log Time Note 12:20:21 Informed consent obtained and on chart 12:20:28 Admit Source: Other 12:21:01 Diagnostic Cath status Elective 12:21:02 Raymond Estrada RN sent for patient. Start room use. 12:21:03 Time tracking: Regular hours (M-F 7:00 - 5:00) 12:21:06 Plan of Care:Hemodynamics will remain stable., Cardiac rhythm will remain stable., Comfort level will be maintained., Respiratory function will remain adequate., Patient/ family verbilizes understanding of procedure., Procedure tolerated without complication., Recovers from procedure without complications.. 12:21:18 H&P Date Dictated: 09/06/2017 Within 30 days and on chart.. 12:24:01 Lab Result : Creatinine 1.2 mg/dl 12:24:01 Lab Result : BUN 17 mg/dl 12:24: Lab Result : PT 20.7 sec 12:24:01 Lab Result : INR 1.84 units 12:24: Lab Result : Hemoglobin 13 g/dl 12:24:01 Lab Result : Hematocrit 39.7 % 12:27:11 Patient received from CVICU to CCL 3 Alert and oriented. Tansferred to table in Supine position. 12:27:12 Warm blankets applied, and heidi hugger turned on for patient comfort. 12:27:12 Correct patient and procedure confirmed by team. 12:27:13 ECG and BP/O2 sat monitors applied to patient. 12:27:17 Pre-procedure instructions explained to patient. 12:27:18 Pre-op teaching completed and patient verbalized understanding. 12:27:19 Family in waiting room. 12:27:20 Patient NPO since Midnight. 12:33:26 Vital chart was started 12:37:30 Patient allergic to No known allergies 12:37:36 Is the patient allergic to Iodine/contrast media? No. 12:37:37 Is patient on blood thinner?Yes 12:37:38 0.9% NaCl 100 ml/hr I.V. was administered by Nathan Rodriges RN; Per physician; 12:37:44 ACC The patient was administered the following blood thiners within the last 24 hours: Xarelto 12:37:46 Patient diabetic? No. 12:37:48 Previous problem with sedation/anesthesia? No ? 12:37:50 Snore? No 12:37:51 Oxygen 4 l/min NC was administered by Nathan Rodriges RN; Per physician; 12:37:51 Sleep apnea? No 12:37:52 Deviated septum? No 12:37:52 Opens mouth fully? Yes 12:37:53 Sticks out tongue? Yes 12:37:55 Airway obstruction? No ? 12:37:58 Dentures? No ? 12:38:01 Pre procedure: right dorsailis pedis pulse 2+ Normal; easily identifiable; not easily obliterated 12:38:04 Patient pain scale 0/10 ?. 12:38:05 Heparin Flush Bag (1000units/500ml NS) 2 bags added to field was administered by Nathan Rodriges RN; used for procedure; 12:38:16 Lidocaine 2% 20ml vial added to field was administered by Nathan Rodriges RN; for local anesthetic; 12:38:36 Lab results completed and on chart. 12:38:41 Right groin area was prepped with chlora-prep and draped in sterile fashion 12:38:42 Alarms reviewed by R. N. 12:38:42 Sharps counted by scrub and verified by R.N. 12:39:10 IV patent on arrival in right antecubital with 0.9% NaCl at KVO. 12:39:15 ACIST Syringe (17184) opened to sterile field. 12:39:17 Bag Decanter (2002S) opened to sterile field. 12:39:18 ACIST Hand Control (06106) opened to sterile field. 12:39:19 ACIST Manifold (73567) opened to sterile field. 12:39:20 Tegaderm 4 x 4 (1626W) opened to sterile field. 12:39:20 Medline Cath Pack ([id number]) opened to sterile field. 12:39:21 DIAGNOSTIC WIRE .035 260cm J wire (613885) opened to sterile field. 12:39:35 Use device set Femoral Dx 12:39:43 DIAGNOSTIC Multipack 5Fr catheter set (DQ8405) opened to sterile field. 12:39:46 SHEATH Prelude 5Fr 0.035 (BJV-1D-03-035) opened to sterile field. 12:40:12 --------ALL STOP TIME OUT------ 12:40:12 Final Timeout: patient, procedure, and site verified with staff and physician. All members of the team are in agreement. 12:40:14 Right groin site verified by team. 12:40:18 Physical assessment completed. ASA score P 2 - A patient with mild systemic disease as per Sourav Lockhart MD. 12:40:21 Sedation plan: IV Moderate Sedation Medication:Versed, Fentanyl 12:40:35 Versed 1 mg I.V. was administered by Nathan Rodriges RN; for sedation; 12:40:43 Fentanyl 50 mcg I.V. was administered by Nathan Rodriges RN; for sedation; 12:43:27 Zero performed for pressure channel P1 12:43:38 Zero performed for pressure channel P1 12:46:57 Procedure started. 12:46:57 Full Disclosure recording started 12:47:27 Local anesthetic to right femoral artery with Lidocaine 2% by Sourav Lockhart MD.INITIAL ACCESS ONLY 12:47:52 A 5 Fr sheath was inserted into the Right Femoral artery 12:48:15 Fentanyl 50 mcg I.V. was administered by Nathan Rodriges RN; for sedation; 12:48:18 A MULTIPACK Pigtail 5 Fr catheter was advanced over the wire and used for Procedure. 12:49:50 unable to cross valve 12:49:51 Catheter removed. 12:49:58 A MULTIPACK JL 4.0 5Fr catheter was advanced over the wire and used for Procedure. 12:50:47 UNABLE TO ENGAGE 12:50:59 Catheter exchanged over wire. 12:51:16 A DIAGNOSTIC JL 5 5Fr catheter ([id number]) was advanced over the wire and used for Procedure. 12:52:46 LCA angiography performed. 12:52:49 Catheter removed. 12:53:07 A MULTIPACK 3DRC 5Fr catheter was advanced over the wire and used for Procedure. 12:53:40 RCA angiography performed. 12:53:41 Catheter removed. 12:53:53 SHEATH 6FR [place] (TND716) opened to sterile field. 12:53:58 INFLATOR Merit BasixCompak (DK3969) opened to sterile field. 12:54:04 CHOICE PT Extra Support 182cm wire ([id number]) opened to sterile field. 12:54:08 [place] IVUS Catheter (27455A) opened to sterile field. 12:54:28 GUIDE 6FR EBU 4.5 catheter ([id number]) opened to sterile field. 12:54:37 Sheath upsized to a 6 Fr Short. 12:54:44 6 Fr EBU 4.5 guide catheter was inserted over the wire 12:56:03 CHOICE ES 182 wire advanced. 12:56:15 Heparin Bolus 4000 units I.V. was administered by Nathan Rodriges RN; for anticoagulation; 12:57:04 Wire advanced across lesion. 12:57:51 IVUS catheter advanced over wire. 12:58:23 IVUS pass to LAD lesion performed. 12:58:24 IVUS catheter removed over wire. 12:59:54 Place stent Inflation Number: 1 A INTEGRITY RX 3.0 x 18 stent ([id number]) was prepped and advanced across the Prox LAD. The stent was deployed at 13 OLIMPIA for 0:10 (min:sec). 12:59:55 Integrilin (Bolus 2mg/ml) 8.5 ml I.V. was administered by Nathan Rodriges RN; for antiplatelet therapy; 13:00:07 Integrilin (Bolus 2mg/ml) 1.5 ml wasted was administered by Nathan Rodriges RN; to sharp's; 13:00:47 Stent catheter was removed intact over wire. 13:00:48 Wire removed. 13:00:48 Guide catheter removed. 13:00:55 EXOSEAL 6Fr (EX600) opened to sterile field. 13:01:05 Sheath removed intact; hemostasis achieved with Exoseal to the Right Femoral artery. 13:01:08 Procedure ended.(Physican Out) 13:04:15 Fluoroscopy time 04.40 minutes. 13:04:29 Fluoroscopy dose: 441 mGy 13:04:29 Flurop Dose total: 441 13:04:38 Contrast amount:Isovue 300 69ml. 13:04:41 Plavix 600 mg P.O. was administered by Nathan Rodriges RN; for antiplatelet therapy; 13:04:43 Post-op/insertion site Right Femoral artery dressed using a 4 x 4 and Tegaderm. 13:04:46 Post right femoral artery:stable, soft, clean and dry 13:04:49 Post procedure: right dorsailis pedis pulse 2+ Normal; easily identifiable; not easily obliterated. 13:04:53 Post-procedure physical assessment completed. ASA score P 2 - A patient with mild systemic disease as per Sourav Lockhart MD. 13:04:57 Post procedure rhythm: unchanged. 13:04:59 Estimated blood loss: 10 ml 13:05:01 Post procedure instruction explained to patient.Patient verbalizes understanding. 13:05:01 Patient needs reinforcement of post procedure teaching. 13:05:41 Procedure type changed to Cath procedure, Diagnostic procedure, LHC, LHC w/Coronaries, FFR/IVUS, Intra-Coronary IVUS Initial, Sedation Charges, Moderate Sedation up to 15 minutes, PCI procedure, Coronary Stent, Coronary Stent Initial 13:06:14 Procedure and supply charges have been captured, reviewed, submitted and are correct. 13:06:17 Procedure Complication : No complications 13:06:21 Vital chart was stopped 13:06:21 See physician's report for complete and final results. 13:06:25 Report given to CVICU. 13:06:27 Patient transfered to CVICU with Bed. 13:06:29 Procedure ended. 13:06:29 Full Disclosure recording stopped 13:06:33 End room use (Document Last) 13:15:10 FEMSTOP ADDED FOR LIGHT PRESSURE Intervention Summary Intervention Notes Time ActionType Lesion and Equipment Action# Pressure Duration Attributes Used 12:59:54 Place stent Prox LAD INTEGRITY RX 1 13 00:10 3.0 x 18 stent ([id number]) Device Usage Item Name Manufacture Quantity Catalog Number Hospital Part Current M inimal Lot# / Charge Number Stock Stock Serial# Code ACIST Syringe Acist 1 56477 751247 142497 652718 2 0 (67876) Medical Systems Inc Bag Decanter Microtek 1 2002S 964828 22054 478434 5 (2002S) Medical Inc. ACIST Hand Acist 1 08102 018283 328753 898977 5 Control (63620) Medical Systems Inc ACIST Manifold Acist 1 12733 017679 569843 080722 5 (66582) Medical Systems Inc Tegaderm 4 x 4 3M 1 1626W 478449 578421 041878 5 (1626W) Medline Cath Cardinal 1 ONNS23160 350693 05176 372877 5 Pack Health ([id number]) DIAGNOSTIC WIRE St Kash 1 657161 480235 880688 198673 3 0 .035 260cm J wire (960616) DIAGNOSTIC Cardinal 1 HV4081 400506 86182 065476 3 0 Multipack 5Fr Health catheter set (NR6151) SHEATH Prelude Merit 1 SAL-3G-04-035 446814 486983 051890 5 5Fr 0.035 Medical (DJY-3V-65-035) MULTIPACK Cardinal 1 953999 5 Pigtail 5 Fr Health catheter MULTIPACK JL Cardinal 1 214121 5 4.0 5Fr Health catheter DIAGNOSTIC JL 5 Cardinal 1 177149N 921503 422684 015203 5 5Fr catheter Health (686518M) MULTIPACK 3DRC Cardinal 1 734429 5 5Fr catheter Health SHEATH 6FR Terumo 1 WNC549 644857 642913 229960 4 0 [place] (MIY523) INFLATOR Merit Merit 1 AN4748 674694 925114 071425 1 5 [facility] (XC1861) CHOICE PT Extra Pala 1 [id number] 773884 293888 043814 5 Support 182cm Scientific wire (8187045N3) [place] 1 74688L 574666 489924 606514 8 [place] IVUS Catheter (83573E) GUIDE 6FR EBU Medtronic 1 [id number] 931153 84069 113739 0 4.5 catheter (BA3BDD50) INTEGRITY RX Medtronic 1 [id number] 453761 379726 713943 5 [id number] 3.0 x 18 stent ([id number]) EXOSEAL 6Fr Cardinal 1 EX600 315400 031126 843695 1 0 (EX600) Health Signature Audit [place] Stage Time Signature Unsigned Intra-Procedure 09/07/2017 Kristen Mendoza 1:20:29 PM RT(R) Signatures Monitor : Kristen Mendoza Signature : RT Date : Time : [place] [id number] [facility] [place] [address]
[2017-09-06 12:38] LABS: BASOPHILS 0.3 % (0-2); EOSINOPHILS 0.8 % (0-7); HEMATOCRIT 39.7 % (42.0-54.0); IMMATURE GRANULOCYTES 0.3 % (0-5); LYMPHOCYTES 7.9 % (15-50); MCH 29.8 pg (26.0-34.0); MCHC 32.7 g/dL (31.0-37.0); MCV 91.1 fL (80.0-100.0); MEAN PLATELET VOLUME 10.6 fL (7.4-10.4); MONOCYTES 11.2 % (2-11); NEUTROPHILS 79.5 % (40-80); PLATELET COUNT 152 10x3/uL (130-400); RBC 4.36 10x6/uL (4.20-6.10); RDW 16.4 % (11.5-14.5); WBC 10.4 10x3/uL (4.8-10.8)
[2017-09-06 12:55] LABS: ALBUMIN 3.9 g/dL (3.4-5.0); ALKALINE PHOSPHATASE 86 U/L (46-116); ALT (SGPT) 24 U/L (10-68); APTT 49.9 SECONDS (22.8-39.4); CALC OSMOLALITY 284 mosm/kg (275-300); CALCIUM 9.3 mg/dL (8.5-10.1); CARBON DIOXIDE 26.6 mmol/L (21.0-32.0); CHLORIDE - SERUM 105 mmol/L (98-107); CREATININE - SERUM 1.2 mg/dL (0.6-1.3); GLUCOSE 131 mg/dL (74-106); INR 3.53 (0.85-1.17); POTASSIUM - SERUM 4.4 mmol/L (3.5-5.1); PROTEIN - SERUM 7.6 g/dL (6.4-8.2); PROTIME 34.6 SECONDS (11.6-15.0); SODIUM 141 mmol/L (136-145); UREA NITROGEN 17 mg/dL (7-18); eGFR NON AFRICAN AMERICAN 65 mL/min (90-120)
[2017-09-06 12:56] LABS: D-DIMER-QUANTITATIVE 2.81 ug/mLFEU (0.20-0.54)
[2017-09-06 13:17] LABS: CKMB 2.3 U/L (0.0-3.6); CREATINE KINASE 123 UL (21-232); PRO BNP 972 pg/mL (0-125); TROPONIN-I < 0.017 ng/mL (0.000-0.060)
[2017-09-06 15:27] LABS: TROPONIN-I 0.033 ng/mL (0.000-0.060)
[2017-09-06 20:43] LABS: CKMB 2.2 U/L (0.0-3.6); CREATINE KINASE 108 UL (21-232); TROPONIN-I 0.029 ng/mL (0.000-0.060)
[2017-09-07] VITALS (23 sets, daily range): BP systolic 92–122; BP diastolic 51–81; Ht 180.3 cm; Wt 104.6 kg
[2017-09-07 03:32] LABS: CKMB 2.2 U/L (0.0-3.6); CREATINE KINASE 100 UL (21-232)
[2017-09-07 08:47] LABS: INR 1.84 (0.85-1.17); PROTIME 20.7 SECONDS (11.6-15.0)
[2017-09-07 13:08] LABS: BASOPHILS 0.2 % (0-2); EOSINOPHILS 2.3 % (0-7); HEMATOCRIT 35.8 % (42.0-54.0); HEMOGLOBIN 11.2 g/dL (13.5-17.5); IMMATURE GRANULOCYTES 0.2 % (0-5); LYMPHOCYTES 7.5 % (15-50); MCH 29.7 pg (26.0-34.0); MCHC 31.3 g/dL (31.0-37.0); MEAN PLATELET VOLUME 10.8 fL (7.4-10.4); MONOCYTES 8.3 % (2-11); NEUTROPHILS 81.5 % (40-80); PLATELET COUNT 129 10x3/uL (130-400); RBC 3.77 10x6/uL (4.20-6.10); RDW 16.9 % (11.5-14.5); WBC 9.9 10x3/uL (4.8-10.8)
[2017-09-07 13:09] LABS: ANION GAP 12.5 mmol/L (8-16); CALCIUM 8.5 mg/dL (8.5-10.1); CREATININE - SERUM 1.2 mg/dL (0.6-1.3); POTASSIUM - SERUM 4.5 mmol/L (3.5-5.1)
[2017-09-08] VITALS (27 sets, daily range): BP systolic 90–140; BP diastolic 51–77
[2017-09-09] VITALS (8 sets, daily range): BP systolic 110–128; BP diastolic 67–80
[2017-09-09] MEDS ORDERED: BAYER CHEWABLE81 MG PO (10:01)
[2017-09-09] MEDS ORDERED: PACERONE200 MG PO (10:01)
[2017-09-09] MEDS ORDERED: PLAVIX75 MG PO (10:01)
== END 2017-09-09 11:14 | disposition home or self-care (01) | DRG 248 ==
LOC: D.ER 11:32 → D.CVICU 14:17 → D.EDHOLD 14:17 → D.CVICU 16:06
PROVIDERS: Family Medicine; Internal Medicine Interventional Cardiology
PROC: B240ZZ3 Ultrasonography of Single Coronary Artery, Intravascular (ICD-10-PCS; 2017-09-07)
PROC: B2111ZZ Fluoroscopy of Multiple Coronary Arteries using Low Osmolar Contrast (ICD-10-PCS; 2017-09-07)
PROC: B2151ZZ Fluoroscopy of Left Heart using Low Osmolar Contrast (ICD-10-PCS; 2017-09-07)
PROC: 4A023N7 Measurement of Cardiac Sampling and Pressure, Left Heart, Percutaneous Approach (ICD-10-PCS; 2017-09-07)
PROC: 02703DZ Dilation of Coronary Artery, One Artery with Intraluminal Device, Percutaneous Approach (ICD-10-PCS; principal; 2017-09-07 12:30)
PROC: 02703DZ Dilation of Coronary Artery, One Artery with Intraluminal Device, Percutaneous Approach (ICD-10-PCS; 2017-09-08 10:00)
DX: I25.119 Atherosclerotic heart disease of native coronary artery with unspecified angina pectoris (principal); I46.9 Cardiac arrest, cause unspecified; I47.2 Ventricular tachycardia; I48.91 Unspecified atrial fibrillation; R55 Syncope and collapse; Z79.01 Long term (current) use of anticoagulants

== ENCOUNTER 2017-09-10 08:09 | Inpatient (IN) | payer MEDICARE, BC ==
[2017-09-10] VITALS (11 sets, daily range): BP systolic 125–156; BP diastolic 65–97; Ht 180.3 cm; Wt 96.0 kg
[~2017-09-10] VITALS: Ht 180.3 cm; Wt 96.0 kg
--- NOTE | ~2017-09-10 | EC ---
PATIENT:KRUNAL JAMES DATE OF SERVICE: 09/10/17 SEX: M MEDICAL RECORD: [id number] DATE OF : 54 LOCATION:D.M2 D.212 AGE OF PATIENT: 66 ADMISSION DATE: 09/10/17 REFERRING PHYSICIAN: INTERPRETING PHYSICIAN: TREASURE LIN MD ECHOCARDIOGRAM REPORT ECHO CHARGES 4 ECHO COMPLETE Date: 09/10 CLINICAL DIAGNOSIS: ECHOCARDIOGRAPHIC MEASUREMENTS (adult normal given) AC root (d.<3.7cm) 4.4 cm LV Septum d (<1.2 cm> 1.5 cm Valve Excursion 0.9 cm LV Septum (systole) 2.1 cm Left Atria (s.<4.0cm> 8.2 cm LVPW d(<1.2cm) 1.5 cm RV (d.<2.3cm) 3.0 cm LVPW (sytole) 2.3 cm LV diastole(<5.6CM) 5.1 cm MV E-F(>70mm/sec) cm LV systole 3.0 cm LVOT Diameter 2.6 cm MV exc.(>10mm) cm Est.ejection fraction (50-75%) % DOPPLER: LVIT cm/sec A cm/sec E 221 cm/sec LA cm/sec RVSP 78.0 mmHg LVOT 68.0 cm/sec AOP1/2T m/s Asc. Ao 279 cm/sec RVOT 73.0 cm/sec RA cm/sec PA 103 cm/sec AV Gradient Peak 31.1 mmHg AV Mean 17.0 mmHg AV Area 1.3 cm MV Gradient Peak 27.1 mmHg MV Mean 8.0 mmHg MV Area cm COMMENTS: Sheetfed Press Operator: 1 SHANTAL ARGILLITE Granite Polisher Apprentice: 4 Dr. Lin TAPE# PACS Pericardial Effusion N DATE OF SERVICE: FINDINGS: 1. 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 Left ventricle shows an ejection fraction of 40% to 45%. There are no obvious regional wall motion abnormalities. 2. The left atrium is severely dilated. 3. The aortic valve is a tissue valve and appears to be grossly normal by pressure gradient depending on the annular size. 4. The mitral valve appears to be a tissue valve. The pressure halftime across ECHOCARDIOGRAM REPORT [id number] KRUNAL JAMES that would get at a valve area of 1 cm-squared, but of course, difficult to know if that is normal for this particular size of bioprosthetic valve replacement. There is a peak gradient across the mitral valve at 27, which would be elevated by one measurement to have 0.8 cm-squared mitral valve effective area. 4. The tricuspid valve has moderate tricuspid regurgitation. RVSP is severely elevated at 75 to 80 mmHg. 5. The right ventricle is severely dilated. 6. The right atrium is severely dilated. 7. The pulmonic valve has trace pulmonic insufficiency. There is no pericardial effusion. CONCLUSION: The patient has mild nonischemic cardiomyopathy. 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 Also, the patient has significant pulmonary hypertension. TRANSINT:[id number] Voice Confirmation ID: [id number] DOCUMENT ID: [id number] TREASURE LIN MD at 1147 CC: [id number] DICTATION DATE: 09/12/171811 HOG OPERATOR: 09/12/17 1848 DIS IN 09/13/17 [facility] [address] [place] [address]
[~2017-09-10 08:09] MED LIST changes: +PACERONE200 MG PO; +PLAVIX75 MG PO
[2017-09-10 08:57] LABS: BASOPHILS 0.5 % (0-2); EOSINOPHILS 1.8 % (0-7); HEMATOCRIT 39.7 % (42.0-54.0); HEMOGLOBIN 13.1 g/dL (13.5-17.5); IMMATURE GRANULOCYTES 0.8 % (0-5); LYMPHOCYTES 12.2 % (15-50); MCH 30.3 pg (26.0-34.0); MCV 91.9 fL (80.0-100.0); MEAN PLATELET VOLUME 10.9 fL (7.4-10.4); MONOCYTES 13.2 % (2-11); NEUTROPHILS 71.5 % (40-80); RBC 4.32 10x6/uL (4.20-6.10); RDW 16.6 % (11.5-14.5); WBC 13.1 10x3/uL (4.8-10.8)
[2017-09-10 09:05] LABS: PLATELET COUNT 182 10x3/uL (130-400)
[2017-09-10 09:14] LABS: ALBUMIN 3.6 g/dL (3.4-5.0); ALKALINE PHOSPHATASE 79 U/L (46-116); ALT (SGPT) 28 U/L (10-68); BILIRUBIN - TOTAL 4.88 mg/dL (0.2-1.3); CALC OSMOLALITY 282 mosm/kg (275-300); CALCIUM 8.8 mg/dL (8.5-10.1); CARBON DIOXIDE 24.9 mmol/L (21.0-32.0); CHLORIDE - SERUM 105 mmol/L (98-107); CREATININE - SERUM 1.1 mg/dL (0.6-1.3); GLUCOSE 111 mg/dL (74-106); POTASSIUM - SERUM 3.8 mmol/L (3.5-5.1); PROTEIN - SERUM 7.4 g/dL (6.4-8.2); SODIUM 140 mmol/L (136-145); UREA NITROGEN 22 mg/dL (7-18); eGFR NON AFRICAN AMERICAN 71 mL/min (90-120)
[2017-09-10 09:37] LABS: CKMB 2.4 U/L (0.0-3.6); CREATINE KINASE 218 UL (21-232); PRO BNP 3054 pg/mL (0-125)
[2017-09-10 09:55] LABS: APPEARANCE CLEAR (CLEAR); BILIRUBIN NEGATIVE (NEGATIVE); COLOR DK YELLOW (YELLOW); GLUCOSE NEGATIVE (NEGATIVE); KETONE NEGATIVE (NEGATIVE); NITRITE NEGATIVE (NEGATIVE); PROTEIN TRACE mg/dL (NEGATIVE)
[2017-09-10 09:56] LABS: BACTERIA MODERATE /hpf (NONE SEEN); EPITHELIAL CELLS OCC /hpf (0-5); MUCUS <1+ /lpf (NONE SEEN); WHITE CELLS - URINE OCC /hpf (0-5)
[2017-09-11 00:34] VITALS: BP 116/62
[2017-09-11 04:36] LABS: BASOPHILS 0.2 % (0-2); EOSINOPHILS 1.7 % (0-7); HEMATOCRIT 33.5 % (42.0-54.0); HEMOGLOBIN 11.1 g/dL (13.5-17.5); IMMATURE GRANULOCYTES 0.3 % (0-5); LYMPHOCYTES 8.8 % (15-50); MCHC 33.1 g/dL (31.0-37.0); MCV 90.5 fL (80.0-100.0); MEAN PLATELET VOLUME 10.3 fL (7.4-10.4); MONOCYTES 13.1 % (2-11); NEUTROPHILS 75.9 % (40-80); RDW 16.5 % (11.5-14.5)
[2017-09-11 04:42] LABS: PLATELET COUNT 132 10x3/uL (130-400); WBC 8.6 10x3/uL (4.8-10.8)
[2017-09-11 04:52] LABS: ALBUMIN 3.1 g/dL (3.4-5.0); BILIRUBIN - TOTAL 4.6 mg/dL (0.2-1.3); CALCIUM 8.3 mg/dL (8.5-10.1); CARBON DIOXIDE 26.3 mmol/L (21.0-32.0); CREATININE - SERUM 1.1 mg/dL (0.6-1.3); POTASSIUM - SERUM 3.3 mmol/L (3.5-5.1); PROTEIN - SERUM 6.3 g/dL (6.4-8.2)
[2017-09-11 05:19] VITALS: BP 126/76
[2017-09-11 08:06] VITALS: BP 136/75
[2017-09-11 16:45] VITALS: BP 132/76
[2017-09-11 20:30] VITALS: BP 112/70
[2017-09-12 00:30] VITALS: BP 119/76
[2017-09-12 04:30] VITALS: BP 100/68
[2017-09-12 05:06] LABS: BASOPHILS 0.3 % (0-2); EOSINOPHILS 2.4 % (0-7); HEMATOCRIT 36.3 % (42.0-54.0); HEMOGLOBIN 11.8 g/dL (13.5-17.5); IMMATURE GRANULOCYTES 0.3 % (0-5); LYMPHOCYTES 11.5 % (15-50); MCH 29.6 pg (26.0-34.0); MCHC 32.5 g/dL (31.0-37.0); MCV 91.2 fL (80.0-100.0); MEAN PLATELET VOLUME 10.2 fL (7.4-10.4); MONOCYTES 9.6 % (2-11); NEUTROPHILS 75.9 % (40-80); PLATELET COUNT 152 10x3/uL (130-400); RBC 3.98 10x6/uL (4.20-6.10); RDW 17.1 % (11.5-14.5); WBC 9.5 10x3/uL (4.8-10.8)
[2017-09-12 05:30] LABS: ALBUMIN 3.3 g/dL (3.4-5.0); ALKALINE PHOSPHATASE 74 U/L (46-116); ALT (SGPT) 27 U/L (10-68); CALC OSMOLALITY 284 mosm/kg (275-300); CALCIUM 8.8 mg/dL (8.5-10.1); CARBON DIOXIDE 28.5 mmol/L (21.0-32.0); CHLORIDE - SERUM 105 mmol/L (98-107); GLUCOSE 117 mg/dL (74-106); POTASSIUM - SERUM 3.7 mmol/L (3.5-5.1); SODIUM 142 mmol/L (136-145); UREA NITROGEN 15 mg/dL (7-18); eGFR NON AFRICAN AMERICAN 80 mL/min (90-120)
[2017-09-12 08:43] VITALS: BP 106/73
[2017-09-12 11:59] VITALS: BP 105/70
[2017-09-12 16:07] VITALS: BP 113/73
[2017-09-12 20:00] VITALS: BP 104/80
[2017-09-13] VITALS: BP 106/70
[2017-09-13 04:00] VITALS: BP 118/73
[2017-09-13 04:44] LABS: BASOPHILS 0.2 % (0-2); EOSINOPHILS 2.5 % (0-7); HEMOGLOBIN 11.6 g/dL (13.5-17.5); IMMATURE GRANULOCYTES 0.2 % (0-5); MCH 29.7 pg (26.0-34.0); MCHC 32.2 g/dL (31.0-37.0); MCV 92.3 fL (80.0-100.0); MEAN PLATELET VOLUME 10.7 fL (7.4-10.4); MONOCYTES 11.3 % (2-11); NEUTROPHILS 75.8 % (40-80); PLATELET COUNT 169 10x3/uL (130-400); RDW 17.7 % (11.5-14.5); WBC 8.6 10x3/uL (4.8-10.8)
[2017-09-13 05:12] LABS: ALBUMIN 3.4 g/dL (3.4-5.0); ANION GAP 11.4 mmol/L (8-16); BILIRUBIN - TOTAL 4.3 mg/dL (0.2-1.3); CALCIUM 8.7 mg/dL (8.5-10.1); CARBON DIOXIDE 30.6 mmol/L (21.0-32.0); CREATININE - SERUM 1.1 mg/dL (0.6-1.3)
[2017-09-13 07:40] VITALS: BP 120/79
[2017-09-13 11:41] VITALS: BP 150/78
[2017-09-13 15:17] VITALS: BP 107/72
[2017-09-13] MEDS ORDERED: PROTONIX40 MG PO (15:36)
[2017-09-13] MEDS ORDERED: K-DUR20 MEQ PO (15:37)
[2017-09-13] MEDS ORDERED: LASIX40 MG PO (15:37)
== END 2017-09-13 18:05 | disposition home or self-care (01) | DRG 291 ==
LOC: D.ER 08:09 → D.M2 11:07
PROVIDERS: Emergency Medicine; Family Medicine
DX: I11.0 Hypertensive heart disease with heart failure (principal); J18.9 Pneumonia, unspecified organism; I50.33 Acute on chronic diastolic (congestive) heart failure; E78.5 Hyperlipidemia, unspecified; D64.9 Anemia, unspecified; E87.6 Hypokalemia; Z95.2 Presence of prosthetic heart valve; I27.20 Pulmonary hypertension, unspecified; I48.2 Chronic atrial fibrillation; I42.9 Cardiomyopathy, unspecified; I50.810 Right heart failure, unspecified

== ENCOUNTER 2017-11-22 13:09 | Inpatient (IN) | payer MEDICARE, BC ==
[~2017-11-22] VITALS: Ht 180.3 cm; Wt 80.9 kg
--- NOTE | ~2017-11-22 | CN ---
PATIENT NAME:KRUNAL JAMES MEDICAL RECORD: [id number] : 54 LOCATION:D. D.2122 ADMIT DATE: 11/22/17 ACCOUNT: [id number] CONSULTING PHYSICIAN: MARY QUARLES MD REFERRING PHYSICIAN: JESSICA KARIMI MD DATE OF CONSULTATION: 11/24/2017 HISTORY OF PRESENT ILLNESS: A 66-year-old gentleman with history of prosthetic valve, tissue type, aortic and mitral position. Most recent echocardiographic study showed some mitral stenosis as well as cardiomyopathy, presented with 2 to 3-day history of increasing dyspnea, point of milton orthopnea, responded nicely to IV diuretics. He also has a history of fibrillation, currently in atrial fibrillation, on amiodarone. We are asked to see him concerning his cardiovascular status. PAST MEDICAL HISTORY: Includes: 1. History of hypertension. 2. Atrial fibrillation. 3. Aortic and mitral valve disease. MEDICATIONS: Include Protonix 40 every day, Lasix 40 every day, Cymbalta 30 every day, Duragesic patch 25 every day, amiodarone 200 mg b.i.d., Xarelto 15 every day, Plavix 75 every day. SOCIAL HISTORY: He is nonsmoker, nondrinker. Easily takes care of all his ADLs. Does have exercise program. ALLERGIES: No known allergies. REVIEW OF SYSTEMS: The patient reports easy bruising but reports no swollen glands. The patient reports no fever, no night sweats, no significant weight gain, no significant weight loss. No significant exercise tolerance. The patient reports no dry eyes, no irritation, no vision change. Patient reports no difficulty hearing and no ear pain. Patient reports no frequent nose bleeds or nose and sinus problems. Patient reports on arm pain on exertion. No shortness of breath while lying down. No history of heart murmur. Patient reports no cough, no wheezing or coughing up blood. Patient reports no abdominal pain, no vomiting. Normal appetite. No diarrhea and not vomiting blood. No nausea and no constipation. Patient reports no incontinence. No difficulty urinating. No hematuria. No increased frequency. Patient reports no muscle aches. No weakness, no arthralgias, no back pain. No swelling of the extremities. Patient reports no abnormal mole, no jaundice, no rashes. Reports no loss of consciousness. No weakness and no numbness. No seizures, dizziness, or headaches. The patient reports no depression, no sleep disturbance, feeling safe in a relationship and no alcohol abuse. Patient reports on fatigue. Reports no runny nose or sinus pressure. No itching, no hives, and no frequent sneezing. PHYSICAL EXAMINATION: GENERAL: Pleasant gentleman in no acute distress. VITAL SIGNS: Blood pressure 114/81, pulse 89 and irregular. HEENT: Normocephalic, atraumatic. NECK: No JVD or bruit. HEART: Regular, rate is controlled. A II/ systolic ejection murmur. I did not hear a diastolic murmur. CONSULT REPORT [id number] KRUNAL JAMES LUNGS: Fairly good air excursion. ABDOMEN: Soft, nontender. EXTREMITIES: Pulses 2+. No edema. DIAGNOSTIC DATA: ECG shows atrial fibrillation. IMPRESSION: Volume overload. At this point in time, we will add carvedilol, Aldactone to his medical regime. Might benefit from either SOPHIA inhibitor, ARB, or Entresto in the near future. Further recommendations based on above. TRANSINT:[id number] Voice Confirmation ID: [id number] DOCUMENT ID: [id number] MARY QUARLES MD at 1630 CC: [id number] DICTATION DATE: 11/24/17 0855 INSURANCE PRODUCER: 11/24/17 1035 ADM IN [place] [id number] [place] [address]
[2017-11-22 08:00] VITALS: BP 108/65
[~2017-11-22 13:09] MED LIST changes: +K-DUR20 MEQ PO; +LASIX40 MG PO; +PROTONIX40 MG PO
[2017-11-22 14:00] VITALS: BP 124/82
[2017-11-22 14:30] VITALS: BP 123/83
[2017-11-22 14:47] LABS: BASOPHILS 0.7 % (0-2); EOSINOPHILS 0.8 % (0-7); HEMOGLOBIN 10.4 g/dL (13.5-17.5); IMMATURE GRANULOCYTES 0.1 % (0-5); LYMPHOCYTES 11.2 % (15-50); MCH 30.1 pg (26.0-34.0); MCHC 31.5 g/dL (31.0-37.0); MCV 95.7 fL (80.0-100.0); MEAN PLATELET VOLUME 10.4 fL (7.4-10.4); MONOCYTES 13.9 % (2-11); NEUTROPHILS 73.3 % (40-80); RBC 3.45 10x6/uL (4.20-6.10); RDW 18.9 % (11.5-14.5); WBC 8.8 10x3/uL (4.8-10.8)
[2017-11-22 14:52] LABS: PLATELET COUNT 224 10x3/uL (130-400)
[2017-11-22 15:05] LABS: ALBUMIN 3.4 g/dL (3.4-5.0); ALKALINE PHOSPHATASE 74 U/L (46-116); ALT (SGPT) 28 U/L (10-68); BILIRUBIN - TOTAL 4.12 mg/dL (0.2-1.3); CALC OSMOLALITY 274 mosm/kg (275-300); CALCIUM 8.7 mg/dL (8.5-10.1); CARBON DIOXIDE 26.4 mmol/L (21.0-32.0); CHLORIDE - SERUM 100 mmol/L (98-107); CREATININE - SERUM 1.4 mg/dL (0.6-1.3); GLUCOSE 89 mg/dL (74-106); POTASSIUM - SERUM 3.4 mmol/L (3.5-5.1); PROTEIN - SERUM 8.1 g/dL (6.4-8.2); SODIUM 136 mmol/L (136-145); UREA NITROGEN 23 mg/dL (7-18); eGFR NON AFRICAN AMERICAN 54 mL/min (90-120)
[2017-11-22 15:17] LABS: CKMB 2.1 U/L (0.0-3.6); CREATINE KINASE 134 UL (21-232); PRO BNP 2757 pg/mL (0-125); TROPONIN-I 0.045 ng/mL (0.000-0.060)
[2017-11-22 15:30] VITALS: BP 112/72
[2017-11-22] MEDS ORDERED: XARELTO15 MG PO (17:26)
[2017-11-22 17:56] VITALS: BP 119/71; BMI 25.1
[2017-11-23] VITALS: BP 99/66
[2017-11-23 04:18] LABS: BASOPHILS 0.7 % (0-2); EOSINOPHILS 3.1 % (0-7); HEMATOCRIT 30.3 % (42.0-54.0); HEMOGLOBIN 9.5 g/dL (13.5-17.5); IMMATURE GRANULOCYTES 0.4 % (0-5); LYMPHOCYTES 13.5 % (15-50); MCH 30.2 pg (26.0-34.0); MCHC 31.4 g/dL (31.0-37.0); MCV 96.2 fL (80.0-100.0); MONOCYTES 13.3 % (2-11); RBC 3.15 10x6/uL (4.20-6.10); RDW 19.1 % (11.5-14.5)
[2017-11-23 04:25] LABS: PLATELET COUNT 178 10x3/uL (130-400); WBC 5.5 10x3/uL (4.8-10.8)
[2017-11-23 04:33] VITALS: BP 119/76
[2017-11-23 04:36] LABS: ANION GAP 8.7 mmol/L (8-16); CALCIUM 8.1 mg/dL (8.5-10.1); CARBON DIOXIDE 29.9 mmol/L (21.0-32.0); CREATININE - SERUM 1.2 mg/dL (0.6-1.3); POTASSIUM - SERUM 3.6 mmol/L (3.5-5.1)
[2017-11-23 07:43] VITALS: BP 109/60
[2017-11-23 11:24] VITALS: BP 115/56
[2017-11-23 14:07] VITALS: Ht 180.3 cm; Wt 80.9 kg
[2017-11-23 15:27] VITALS: BP 123/76
[2017-11-23 20:39] VITALS: BP 119/64
[2017-11-24 04:00] VITALS: BP 97/43
[2017-11-24 05:27] LABS: BASOPHILS 0.5 % (0-2); EOSINOPHILS 4.1 % (0-7); HEMATOCRIT 32.7 % (42.0-54.0); HEMOGLOBIN 10.2 g/dL (13.5-17.5); IMMATURE GRANULOCYTES 0.2 % (0-5); LYMPHOCYTES 14.5 % (15-50); MCH 30.4 pg (26.0-34.0); MCHC 31.2 g/dL (31.0-37.0); MCV 97.3 fL (80.0-100.0); MEAN PLATELET VOLUME 10.4 fL (7.4-10.4); MONOCYTES 14.6 % (2-11); NEUTROPHILS 66.1 % (40-80); PLATELET COUNT 184 10x3/uL (130-400); RBC 3.36 10x6/uL (4.20-6.10); RDW 19.2 % (11.5-14.5); WBC 5.6 10x3/uL (4.8-10.8)
[2017-11-24 05:42] LABS: ANION GAP 9.4 mmol/L (8-16); CALCIUM 8.5 mg/dL (8.5-10.1); CREATININE - SERUM 1.3 mg/dL (0.6-1.3); POTASSIUM - SERUM 3.4 mmol/L (3.5-5.1)
[2017-11-24 05:48] LABS: APTT 38.2 SECONDS (22.8-39.4); INR 1.29 (0.85-1.17); PROTIME 15.7 SECONDS (11.6-15.0)
[2017-11-24 07:36] VITALS: BP 114/81
[2017-11-24 11:30] VITALS: BP 125/75
[2017-11-24 15:08] VITALS: BP 105/71
[2017-11-24 21:17] VITALS: BP 96/69
[2017-11-25 05:45] LABS: BASOPHILS 0.8 % (0-2); EOSINOPHILS 5.3 % (0-7); HEMATOCRIT 31.5 % (42.0-54.0); HEMOGLOBIN 9.8 g/dL (13.5-17.5); IMMATURE GRANULOCYTES 0.2 % (0-5); LYMPHOCYTES 15.4 % (15-50); MCH 30.2 pg (26.0-34.0); MCHC 31.1 g/dL (31.0-37.0); MCV 97.2 fL (80.0-100.0); MEAN PLATELET VOLUME 10.2 fL (7.4-10.4); MONOCYTES 13.3 % (2-11); PLATELET COUNT 188 10x3/uL (130-400); RBC 3.24 10x6/uL (4.20-6.10); WBC 5.1 10x3/uL (4.8-10.8)
[2017-11-25 05:55] LABS: ANION GAP 9.1 mmol/L (8-16); CALCIUM 8.5 mg/dL (8.5-10.1); CREATININE - SERUM 1.1 mg/dL (0.6-1.3); POTASSIUM - SERUM 4.1 mmol/L (3.5-5.1)
[2017-11-25 06:35] VITALS: BP 98/58
[2017-11-25 07:49] VITALS: BP 119/71
[2017-11-25] MEDS ORDERED: COREG6.25 MG PO (10:39)
[2017-11-25] MEDS ORDERED: ALDACTONE25 MG PO (10:40)
[2017-11-25 11:28] VITALS: BP 116/65
[2017-11-25] MEDS ORDERED: XARELTO15 MG PO (14:12)
[2017-11-25 16:37] VITALS: BP 121/70
[2017-12-01 03:11] LABS: CHENODEOXYCHOLIC ACID 12 umol/L (()); CHOLIC ACID 3.9 umol/L (()); TOTAL BILE ACIDS 21 umol/L (()); URSODEOXYCHOLIC ACID <0.10 umol/L (())
== END 2017-11-25 18:13 | disposition home or self-care (01) | DRG 292 ==
LOC: D.ER 13:09 → D.EDHOLD 15:30 → D.M2 15:30
PROVIDERS: Emergency Medicine; Internal Medicine Nephrology
DX: I11.0 Hypertensive heart disease with heart failure (principal); N17.9 Acute kidney failure, unspecified; R17 Unspecified jaundice; I48.91 Unspecified atrial fibrillation; I50.9 Heart failure, unspecified; I42.9 Cardiomyopathy, unspecified; Z95.2 Presence of prosthetic heart valve; I25.10 Atherosclerotic heart disease of native coronary artery without angina pectoris; Z95.5 Presence of coronary angioplasty implant and graft; D50.9 Iron deficiency anemia, unspecified; Z87.891 Personal history of nicotine dependence; E87.6 Hypokalemia; I50.33 Acute on chronic diastolic (congestive) heart failure

== ENCOUNTER 2018-01-12 20:06 | Emergency (ER) | payer MEDICARE, BC ==
[~2018-01-12] VITALS: Ht 180.3 cm; Wt 78.2 kg
[~2018-01-12 20:06] MED LIST changes: +ALDACTONE25 MG PO; +COREG6.25 MG PO
[2018-01-12 20:29] VITALS: Ht 180.3 cm; Wt 78.2 kg
[2018-01-12 21:40] LABS: BASOPHILS 0.7 % (0-2); EOSINOPHILS 1.6 % (0-7); HEMATOCRIT 34.3 % (42.0-54.0); IMMATURE GRANULOCYTES 0.1 % (0-5); LYMPHOCYTES 15.2 % (15-50); MCH 30.7 pg (26.0-34.0); MCHC 32.1 g/dL (31.0-37.0); MCV 95.8 fL (80.0-100.0); MEAN PLATELET VOLUME 9.7 fL (7.4-10.4); MONOCYTES 10.3 % (2-11); NEUTROPHILS 72.1 % (40-80); PLATELET COUNT 192 10x3/uL (130-400); RBC 3.58 10x6/uL (4.20-6.10); RDW 17.1 % (11.5-14.5); WBC 6.8 10x3/uL (4.8-10.8)
[2018-01-12 21:51] LABS: APTT 47.2 SECONDS (22.8-39.4); INR 1.97 (0.85-1.17); PROTIME 21.8 SECONDS (11.6-15.0)
[2018-01-13 00:09] VITALS: BP 132/79
== END 2018-01-13 00:09 | disposition home or self-care (01) ==
LOC: D.ER 20:06
PROVIDERS: Family Medicine
DX: K06.8 Other specified disorders of gingiva and edentulous alveolar ridge (principal); Z79.01 Long term (current) use of anticoagulants; I50.9 Heart failure, unspecified; I48.91 Unspecified atrial fibrillation

== ENCOUNTER 2018-06-13 08:58 | Inpatient (IN) | payer MEDICARE, BC ==
[~2018-06-13] VITALS: Ht 180.3 cm; Wt 71.8 kg
[2018-06-13 09:37] LABS: BASOPHILS 0.3 % (0-2); EOSINOPHILS 1.6 % (0-7); HEMATOCRIT 36.1 % (42.0-54.0); HEMOGLOBIN 11.7 g/dL (13.5-17.5); IMMATURE GRANULOCYTES 0.4 % (0-5); LYMPHOCYTES 9.5 % (15-50); MCH 30.6 pg (26.0-34.0); MCHC 32.4 g/dL (31.0-37.0); MCV 94.5 fL (80.0-100.0); MEAN PLATELET VOLUME 10.3 fL (7.4-10.4); MONOCYTES 9.6 % (2-11); NEUTROPHILS 78.6 % (40-80); RBC 3.82 10x6/uL (4.20-6.10); WBC 10.1 10x3/uL (4.8-10.8)
[2018-06-13 09:42] LABS: PLATELET COUNT 314 10x3/uL (130-400)
[2018-06-13 09:52] LABS: INR 4.42 (0.85-1.17); PROTIME 41.3 SECONDS (11.6-15.0)
[2018-06-13 09:53] LABS: APTT 91.5 SECONDS (22.8-39.4)
[2018-06-13 09:54] LABS: ALBUMIN 3.3 g/dL (3.4-5.0); ALKALINE PHOSPHATASE 110 U/L (46-116); ALT (SGPT) 37 U/L (10-68); BILIRUBIN - TOTAL 4.76 mg/dL (0.2-1.3); CALC OSMOLALITY 276 mosm/kg (275-300); CALCIUM 9.1 mg/dL (8.5-10.1); CARBON DIOXIDE 24.1 mmol/L (21.0-32.0); CHLORIDE - SERUM 98 mmol/L (98-107); CREATININE - SERUM 1.5 mg/dL (0.6-1.3); POTASSIUM - SERUM 4.1 mmol/L (3.5-5.1); PROTEIN - SERUM 9.7 g/dL (6.4-8.2); SODIUM 134 mmol/L (136-145); eGFR NON AFRICAN AMERICAN 50 mL/min (90-120)
[2018-06-13 10:00] VITALS: BP 96/63
[2018-06-13 10:01] LABS: GLUCOSE 136 mg/dL (74-106)
[2018-06-13 10:03] LABS: UREA NITROGEN 32 mg/dL (7-18)
[2018-06-13 10:05] LABS: CKMB 1.9 U/L (0.0-3.6); CREATINE KINASE 100 UL (21-232); PRO BNP 5419 pg/mL (0-125)
[2018-06-13 10:06] LABS: TROPONIN-I < 0.017 ng/mL (0.000-0.060)
[2018-06-13 10:46] LABS: AMYLASE - SERUM 49 U/L (25-115); LIPASE 232 U/L (73-393)
--- NOTE | 2018-06-13 11:30 | NUR ---
ADMITTED TO ROOM 1211 MED 3 FROM EMERGENCY DEPT. VIA WHEELCHAIR. AWAKE AND ALERT, O2 ON AT 2L/NC. AT BEDSIDE. PATIENT IS VERY JAUNDICED SKIN COLOR, SAYS HIS ABDOMIN GET "GASSY FEELING" EVERY TIME HE EATS. WILL CONTINUE TO MONITOR.
[2018-06-13 12:28] VITALS: BP 98/68
--- NOTE | 2018-06-13 12:28 | MORECARE ---
CASE MANAGEMENT DISCHARGE SUMMARY PATIENT: KRUNAL JAMES UNIT: [id number] ADM DATE: 06/13/18 AGE: 67 : 52 SEX: M ROOM/BED: D.1211 AUTHOR: GURVINDER TRAVIS PHYSICIAN: REFERRING PHYSICIAN: LEISA CRISTINA MD DATE OF SERVICE: 06/13/18 Discharge Plan Patient Name: KRUNAL JAMES Facility: [facility]:[place] : 1950 Planned Disposition: Home Anticipated Discharge Date: 06/15/18 Discharge Date: Expected LOS: 2 Initial Reviewer: [email or web address] Initial Review Date: 06/13/2018 Generated: 06/13/18 1:28 pm Patient Name: KRUNAL JAMES Page [phone] at 1228 All edits/amendments must be made on the electronic document DICTATION DATE: 06/13/18 1228 MARITIME OFFICER: JIGNESH 06/13/18 1228 RPT#: [id number] DC DATE: STATUS: ADM IN [facility] [address] [place] [address] END OF REPORT
--- NOTE | 2018-06-13 12:37 | MORECARE ---
CASE MANAGEMENT DISCHARGE SUMMARY PATIENT: KRUNAL JAMES UNIT: [id number] ADM DATE: 06/13/18 AGE: 67 : 54 SEX: M ROOM/BED: D.1211 AUTHOR: GURVINDER TRAVIS PHYSICIAN: REFERRING PHYSICIAN: LEISA CRISTINA MD DATE OF SERVICE: 06/13/18 Discharge Plan Patient Name: KRUNAL JAMES Facility: [facility]:[place] : 1950 Planned Disposition: Home Anticipated Discharge Date: 06/15/18 Discharge Date: Expected LOS: 2 Initial Reviewer: [email or web address] Initial Review Date: 06/13/2018 Generated: 06/13/18 1:37 pm DCP- Discharge Planning Updated by [email or web address]: Virginia Coreas on 06/13/18 11:[address] Patient Name: KRUNAL JAMES Admission Status: ER Accout number: [id number] Admission Date: 06-13-2018 : 1950 Admission Diagnosis: Attending: LEISA CRISTINA Current LOS: 1 Anticipated DC Date: 06-15-2018 Planned Disposition: Home Primary Insurance: MEDICARE A & B Discharge Planning Comments: CM met with patient's (pt in [place] at time of assessment) to complete initial dc planning assessment. CM educated patient's on the CM role and verbal consent given by her to complete assessment. Patient lives at home with his and is independent in his care at home. At discharge patient plans to return home and feels this is a safe discharge. CM discussed availability of home health, rehab services, and medical equipment. Patient denied known discharge needs at this time. CM will continue to follow and will assist as needed with dc plans/needs. Motors And Generators Inspector: Virginia Coreas DCPIA - Discharge Planning Initial Assessment Updated by [id number]: Virginia Coreas on 06/13/18 12:31 pm * Is the patient Alert and Oriented? Yes * How many steps to enter\exit or inside your home? Two * PCP Dr. Ramírez * Pharmacy [facility] * Preadmission Environment Home with Family * ADLs Independent * Equipment None * List name and contact numbers for known caregivers / representatives who currently or will assist patient after discharge: Bárbara James -- [phone] * Verbal permission to speak to the caregivers and representatives has been obtained from the patient. Yes * Community resources currently utilized None * Additional services required to return to the preadmission environment? No * Can the patient safely return to the preadmission environment? Yes * Has this patient been hospitalized within the prior 30 days at any hospital? No Last DP export: 06/13/18 11:28 a Patient Name: KRUNAL JAMES Page [id number] at 1237 All edits/amendments must be made on the electronic document DICTATION DATE: 06/13/18 1237 CASHIER: JIGNESH 06/13/18 1237 RPT#: [id number] CT DATE: STATUS: ADM IN [facility] [address] [place] [address] END OF REPORT
[2018-06-13 14:10] LABS: CKMB 2.2 U/L (0.0-3.6); CREATINE KINASE 161 UL (21-232); TROPONIN-I 0.021 ng/mL (0.000-0.060)
[2018-06-13 17:29] VITALS: BP 93/58
[2018-06-13 20:00] VITALS: BP 102/65
[2018-06-13 20:31] LABS: CKMB 2.1 U/L (0.0-3.6); CREATINE KINASE 150 UL (21-232); TROPONIN-I < 0.017 ng/mL (0.000-0.060)
[2018-06-13 21:26] VITALS: BP 102/65; BMI 22.3
--- NOTE | 2018-06-13 21:30 | NUR ---
PATIENT RESTING IN BED WITH NO S/S OF DISTRESS. COMPLETED ADMISSION ASSESSMENT. PATIENT DENIES OTHER NEEDS AT THIS TIME. BED IN LOWEST POSITION AND CALL LIGHT WITHIN REACH. ENCOURAGED THE PATIENT TO CALL IF HE HAS NEEDS. WILL CONTINUE TO MONITOR.
--- NOTE | 2018-06-13 23:01 | NUR ---
CALLED FOR TELE, NO MONITORS AVAILABLE AT THIS TIME
[2018-06-14] VITALS: BP 98/64
[2018-06-14 01:41] LABS: CKMB 1.7 U/L (0.0-3.6); CREATINE KINASE 80 UL (21-232); TROPONIN-I < 0.017 ng/mL (0.000-0.060)
[2018-06-14 04:00] VITALS: BP 85/58
[2018-06-14 07:32] LABS: BASOPHILS 0.4 % (0-2); EOSINOPHILS 2.7 % (0-7); HEMATOCRIT 34.7 % (42.0-54.0); IMMATURE GRANULOCYTES 0.3 % (0-5); LYMPHOCYTES 7.9 % (15-50); MCHC 31.7 g/dL (31.0-37.0); MCV 94.6 fL (80.0-100.0); MEAN PLATELET VOLUME 10.5 fL (7.4-10.4); MONOCYTES 9.4 % (2-11); NEUTROPHILS 79.3 % (40-80); PLATELET COUNT 289 10x3/uL (130-400); RBC 3.67 10x6/uL (4.20-6.10); WBC 9.5 10x3/uL (4.8-10.8)
[2018-06-14 07:55] LABS: ANION GAP 13.5 mmol/L (8-16); BILIRUBIN - TOTAL 4.45 mg/dL (0.2-1.3); CALCIUM 8.1 mg/dL (8.5-10.1); CARBON DIOXIDE 26.9 mmol/L (21.0-32.0); CREATININE - SERUM 1.4 mg/dL (0.6-1.3); PHOSPHOROUS 3.9 mg/dL (2.5-4.9)
[2018-06-14 07:57] LABS: POTASSIUM - SERUM 3.4 mmol/L (3.5-5.1)
[2018-06-14 09:12] VITALS: BP 97/52
--- NOTE | 2018-06-14 09:18 | NUR ---
PT AM MEDS ADMINISTERED. PT GIVEN PRN POTASSIUM 40MEQ FOR K+3.4. WILL RECHECK. PT DENIES NEEDS AT THIS TIME.
[2018-06-14 12:30] VITALS: BP 114/57
[2018-06-14 15:12] VITALS: Ht 180.3 cm; Wt 71.8 kg
[2018-06-14 17:18] VITALS: BP 112/76
[2018-06-14 20:00] VITALS: BP 96/45
--- NOTE | 2018-06-14 20:30 | NUR ---
RESUMING PT CARE. PT ALERT LAYING IN BED. NO C/O VOICED. NO S/S OF DISTRESS. PT HAS A IV IN THE RIGHT FOREARM. BED IN LOW POSITION WITH CALL LIGHT IN REACH. WILL CONTINUE TO MONITOR PT AND FOLLOW PLAN OF CARE.
[2018-06-15] VITALS (8 sets, daily range): BP systolic 93–104; BP diastolic 38–71
--- NOTE | 2018-06-15 03:26 | NUR ---
I have reviewed this patient and I concur with the Shift Assessment completed by the Licensed Practical Nurse today this shift.
--- NOTE | 2018-06-15 03:37 | NUR ---
PT LAYING IN BED RESTING COMFORTABLY WITH EYES CLOSED. BED IN LOW POSITION WITH CALL LIGHT IN REACH. WILL CONTINUE TO MONITOR PT AND FOLLOW PLAN OF CARE.
[2018-06-15 05:54] LABS: BASOPHILS 0.6 % (0-2); EOSINOPHILS 5.3 % (0-7); HEMOGLOBIN 9.8 g/dL (13.5-17.5); IMMATURE GRANULOCYTES 0.2 % (0-5); LYMPHOCYTES 8.8 % (15-50); MCH 29.8 pg (26.0-34.0); MCHC 31.6 g/dL (31.0-37.0); MCV 94.2 fL (80.0-100.0); MONOCYTES 11.8 % (2-11); NEUTROPHILS 73.3 % (40-80); RBC 3.29 10x6/uL (4.20-6.10); RDW 17.8 % (11.5-14.5)
[2018-06-15 06:01] LABS: PLATELET COUNT 221 10x3/uL (130-400); WBC 6.3 10x3/uL (4.8-10.8)
[2018-06-15 06:28] LABS: ALBUMIN 2.7 g/dL (3.4-5.0); ANION GAP 10.7 mmol/L (8-16); BILIRUBIN - DIRECT 1.85 mg/dL (0.00-0.30); BILIRUBIN - TOTAL 3.69 mg/dL (0.2-1.3); CALCIUM 8.1 mg/dL (8.5-10.1); CREATININE - SERUM 1.5 mg/dL (0.6-1.3); POTASSIUM - SERUM 3.7 mmol/L (3.5-5.1); PROTEIN - SERUM 8.4 g/dL (6.4-8.2); THYROID STIMULATING HORMONE 5.45 uIU/mL (0.36-3.74)
--- NOTE | 2018-06-15 09:20 | NUR ---
PT AM MEDS ADMINISTERD. PT BRAXTON NGUYỄN. HILARIO.
--- NOTE | 2018-06-15 12:00 | NUR ---
CLEAR LIQUID DIET STARTED PER REGIMEN.
--- NOTE | 2018-06-15 14:42 | NUR ---
REPORT CALLED TO NURSE RECEIVING ROOM 2227 D/T BATHROOM FLOODING.
--- NOTE | 2018-06-15 14:49 | NUR ---
PT ARRIVES TO ROOM VIA WHEELCHAIR. PT IS ABLE TO AMBULATE FROM WHEELCHAIR TO BED WITHOUT DIFFICULTY. PT DENIES PRESENCE OF PAIN AT THIS TIME. PT SKIN COLOR IS SLIGHTLY JAUNDICED AND PT WITH YELLOW SCLERA IN BILATERAL EYES. PT WITH TELEMETRY ON AND IS RUNNING SINUS ROBLES @ 59 PER STATION MASTER WANDDA. PIV TO RIGHT FOREARM THAT IS SALINE LOCKED. PT DENIES PRESENCE OF PAIN AND DENIES PRESENCE OF N/V AT THIS TIME. BED IS IN THE LOWEST POSITION. CALL LIGHT AND BEDSIDE TABLE ARE WITHIN REACH. WILL CONT TO MONITOR.
[2018-06-16 04:00] VITALS: BP 115/56
[2018-06-16 04:18] LABS: BASOPHILS 0.7 % (0-2); EOSINOPHILS 2.6 % (0-7); HEMATOCRIT 31.7 % (42.0-54.0); HEMOGLOBIN 10.1 g/dL (13.5-17.5); IMMATURE GRANULOCYTES 0.3 % (0-5); LYMPHOCYTES 9.8 % (15-50); MCH 29.9 pg (26.0-34.0); MCHC 31.9 g/dL (31.0-37.0); MCV 93.8 fL (80.0-100.0); MEAN PLATELET VOLUME 9.3 fL (7.4-10.4); MONOCYTES 9.6 % (2-11); PLATELET COUNT 243 10x3/uL (130-400); RBC 3.38 10x6/uL (4.20-6.10); RDW 17.5 % (11.5-14.5)
[2018-06-16 04:40] LABS: ALBUMIN 2.9 g/dL (3.4-5.0); ANION GAP 9.6 mmol/L (8-16); CALCIUM 8.5 mg/dL (8.5-10.1); CARBON DIOXIDE 30.1 mmol/L (21.0-32.0); CREATININE - SERUM 1.4 mg/dL (0.6-1.3); PHOSPHOROUS 3.9 mg/dL (2.5-4.9); POTASSIUM - SERUM 3.7 mmol/L (3.5-5.1); PROTEIN - SERUM 8.8 g/dL (6.4-8.2)
--- NOTE | 2018-06-16 06:50 | NUR ---
RESITE IV DUE TO BLEEDING AT SITE. NEW IV 22 SYLVIE TO R FA WITH ONE STICK.
[2018-06-16 10:11] VITALS: BP 102/54
--- NOTE | 2018-06-16 12:28 | NUR ---
NUTRITION F/U PT CURRENTLY NPO FOR PROCEDURE. WILL PROVIDE DIET WHEN RESUMED, MONITOR INTAKE. ASSIST WITH NUTRITION SUPPORT IF NEEDED. RD FOLLOWING
[2018-06-16 13:37] VITALS: BP 117/58
[2018-06-16 17:34] VITALS: BP 98/65
--- NOTE | 2018-06-16 18:51 | NUR ---
I have reviewed this patient and I concur with the Shift Assessment completed by the Licensed Practical Nurse today this shift.
[2018-06-16 20:00] VITALS: BP 103/70
--- NOTE | 2018-06-16 20:45 | NUR ---
PT SITTING UP IN BED, NO SIGNS OF DISTRESS. ALERT AND ORIENTED. 02 3L/NC. IV RIGHT FA SL. FLUSHES EASILY, DRESSING CDI. INFORMED PT HE IS NPO AFTER MIDNIGHT, VERBALIZED UNDERSTANDING. FINISHED BOWEL PREP. STATES HIS BM'S ARE RUNNING CLEAR. CHANGED FENTANYL PATCH FROM RIGHT CHEST TO LEFT. DENIES OTHER NEEDS AT THIS TIME. CL IN REACH, WILL CONT TO MONITOR
[2018-06-17] VITALS: BP 90/59
[2018-06-17 04:00] VITALS: BP 87/45
[2018-06-17 04:23] LABS: BASOPHILS 0.8 % (0-2); EOSINOPHILS 2.9 % (0-7); HEMATOCRIT 29.1 % (42.0-54.0); HEMOGLOBIN 9.8 g/dL (13.5-17.5); IMMATURE GRANULOCYTES 0.1 % (0-5); LYMPHOCYTES 8.5 % (15-50); MCH 31.6 pg (26.0-34.0); MCHC 33.7 g/dL (31.0-37.0); MCV 93.9 fL (80.0-100.0); MEAN PLATELET VOLUME 9.7 fL (7.4-10.4); MONOCYTES 11.9 % (2-11); NEUTROPHILS 75.8 % (40-80); PLATELET COUNT 231 10x3/uL (130-400); RDW 17.4 % (11.5-14.5); WBC 7.2 10x3/uL (4.8-10.8)
[2018-06-17 04:33] LABS: INR 1.36 (0.85-1.17); PROTIME 16.2 SECONDS (11.6-15.0)
[2018-06-17 04:45] LABS: ALBUMIN 2.8 g/dL (3.4-5.0); ANION GAP 13.3 mmol/L (8-16); BILIRUBIN - TOTAL 3.59 mg/dL (0.2-1.3); CALCIUM 8.1 mg/dL (8.5-10.1); CARBON DIOXIDE 28.2 mmol/L (21.0-32.0); CREATININE - SERUM 1.2 mg/dL (0.6-1.3); PHOSPHOROUS 4.1 mg/dL (2.5-4.9); POTASSIUM - SERUM 3.5 mmol/L (3.5-5.1); PROTEIN - SERUM 8.6 g/dL (6.4-8.2)
[2018-06-17 13:03] VITALS: BP 131/65
--- NOTE | 2018-06-17 15:15 | MORECARE ---
CASE MANAGEMENT DISCHARGE SUMMARY PATIENT: KRUNAL JAMES UNIT: [id number] ADM DATE: 06/13/18 AGE: 67 : 52 SEX: M ROOM/BED: D.2227 AUTHOR: GURVINDER TRAVIS PHYSICIAN: REFERRING PHYSICIAN: LEISA CRISTINA MD DATE OF SERVICE: 06/17/18 Discharge Plan Patient Name: KRUNAL JAMES Facility: [facility]:[place] : 1950 Planned Disposition: Home Anticipated Discharge Date: 06/15/18 Discharge Date: Expected LOS: 2 Initial Reviewer: [email or web address] Initial Review Date: 06/13/2018 Generated: 06/17/18 4:15 pm Comments DCP- Discharge Planning Updated by [id number]: Chela Mcelroy on 06/17/18 2:[address] Received order for discharge. He is on 2.5L NC. I removed oxygen for room air sat to check home oxygen needs. I called RT and informed I needed a walk test. He declines home health. I informed him we would order oxygen if he qualifies and he agrees and ROLANDO for [facility] signed. CM will continue to follow and assist with discharge planning/needs. DCP- Discharge Planning Updated by [email or web address]: Virginia Coreas on 06/13/18 11:[address] Patient Name: KRUNAL JAMES Admission Status: ER Accout number: [id number] Admission Date: 06-13-2018 : 1950 Admission Diagnosis: Attending: LEISA CRISTINA Current LOS: 1 Anticipated DC Date: 06-15-2018 Planned Disposition: Home Primary Insurance: MEDICARE A & B Discharge Planning Comments: CM met with patient's (pt in [place] at time of assessment) to complete initial dc planning assessment. CM educated patient's on the CM role and verbal consent given by her to complete assessment. Patient lives at home with his and is independent in his care at home. At discharge patient plans to return home and feels this is a safe discharge. CM discussed availability of home health, rehab services, and medical equipment. Patient denied known discharge needs at this time. CM will continue to follow and will assist as needed with dc plans/needs. Police Department Secretary: Virginia Coreas DCPIA - Discharge Planning Initial Assessment Updated by [email or web address]: Virginia Coreas on 06/13/18 12:31 pm * Is the patient Alert and Oriented? Yes * How many steps to enter\exit or inside your home? Two * PCP Dr. Ramírez * Pharmacy [facility] [address] * Preadmission Environment Home with Family * ADLs Independent * Equipment None * List name and contact numbers for known caregivers / representatives who currently or will assist patient after discharge: Bárbara James -- [phone] * Verbal permission to speak to the caregivers and representatives has been obtained from the patient. Yes * Community resources currently utilized None * Additional services required to return to the preadmission environment? No * Can the patient safely return to the preadmission environment? Yes * Has this patient been hospitalized within the prior 30 days at any hospital? No Coverage Notice Reviewer: [email or web address] Marquise Tavarez Notice Issued Date-Time: 06/15/2018 10:13 Notice Type: IM Discharge Notice Notice Delivered To: Patient Relationship to Patient: Scale Tank Operator Name: Delivery Method: HAND - Hand Delivered Joselin Days: Prior Verbal Notification: Recipient Understood Notice: Yes Recipient Signature: Yes Med Rec Note Co-signed by Attending: Coverage Notice Comment: Reviewer: [email or web address] - Chela Mcelroy Notice Issued Date-Time: 06/17/2018 15:06 Notice Type: IM Discharge Notice Notice Delivered To: Patient Relationship to Patient: Self Scale Tank Operator Name: Delivery Method: HAND - Hand Delivered Joselin Days: Prior Verbal Notification: Recipient Understood Notice: Yes Recipient Signature: Yes Med Rec Note Co-signed by Attending: Coverage Notice Comment: IMM explained, signed, given, copy placed in MR Last DP export: 06/13/18 11:37 a Patient Name: KRUNAL JAMES Page [phone] at 1515 All edits/amendments must be made on the electronic document DICTATION DATE: 06/17/181513 SIGNAL REPAIRER: JIGNESH 06/17/181513 RPT#: [id number] DC DATE: STATUS: ADM IN [facility] [address] [place] [address] END OF REPORT
--- NOTE | 2018-06-17 15:45 | MORECARE ---
CASE MANAGEMENT DISCHARGE SUMMARY PATIENT: KRUNAL JAMES UNIT: [id number] ADM DATE: 06/13/18 AGE: 67 : 52 SEX: M ROOM/BED: D.2227 AUTHOR: GURVINDER TRAVIS PHYSICIAN: REFERRING PHYSICIAN: LEISA CRISTINA MD DATE OF SERVICE: 06/17/18 Discharge Plan Patient Name: KRUNAL JAMES Facility: [facility]:[place] : 1950 Planned Disposition: Home Anticipated Discharge Date: 06/15/18 Discharge Date: Expected LOS: 2 Initial Reviewer: [email or web address] Initial Review Date: 06/13/2018 Generated: 06/17/18 4:45 pm Comments DCP- Discharge Planning Updated by [email or web address]: Chela Mcelroy on 06/17/18 2:[address] HE QUALIFIES FOR HOME OXYGEN. I CALLED AND SPOKE TO ANGELINA WITH [facility] AND OXYGEN WITH PORTABILITY ORDERED. I CALLED AND INFORMED HERRERA. THE PATIENT INSTRUCTED TO WAIT UNTIL PORTABLE OXYGEN IS HERE FOR DISCHARGE. CM WILL CONTINUE TO FOLLOW AND ASSIST WITH DISCHARGE PLANNING/NEEDS. DCP- Discharge Planning Updated by [id number]: Chela Mcelroy on 06/17/18 2:[address] Received order for discharge. He is on 2.5L NC. I removed oxygen for room air sat to check home oxygen needs. I called RT and informed I needed a walk test. He declines home health. I informed him we would order oxygen if he qualifies and he agrees and ROLANDO for [facility] signed. CM will continue to follow and assist with discharge planning/needs. DCP- Discharge Planning Updated by [id number]: Virginia Coreas on 06/13/18 11:[address] Patient Name: KRUNAL JAMES Admission Status: ER Accout number: [id number] Admission Date: 06-13-2018 : 1950 Admission Diagnosis: Attending: LEISA CRISTINA Current LOS: 1 Anticipated DC Date: 06-15-2018 Planned Disposition: Home Primary Insurance: MEDICARE A & B Discharge Planning Comments: CM met with patient's (pt in [place] at time of assessment) to complete initial dc planning assessment. CM educated patient's on the CM role and verbal consent given by her to complete assessment. Patient lives at home with his and is independent in his care at home. At discharge patient plans to return home and feels this is a safe discharge. CM discussed availability of home health, rehab services, and medical equipment. Patient denied known discharge needs at this time. CM will continue to follow and will assist as needed with dc plans/needs. Seasonal Package Handler: Virginia Coreas DCPIA - Discharge Planning Initial Assessment Updated by [id number]: Virginia Coreas on 06/13/18 12:31 pm * Is the patient Alert and Oriented? Yes * How many steps to enter\exit or inside your home? Two * PCP Dr. Ramírez * Pharmacy [facility] [address] * Preadmission Environment Home with Family * ADLs Independent * Equipment None * List name and contact numbers for known caregivers / representatives who currently or will assist patient after discharge: Bárbara James -- [phone] * Verbal permission to speak to the caregivers and representatives has been obtained from the patient. Yes * Community resources currently utilized None * Additional services required to return to the preadmission environment? No * Can the patient safely return to the preadmission environment? Yes * Has this patient been hospitalized within the prior 30 days at any hospital? No External Providers [facility] Contact Date: Service Request Date: Service Type: Resolution: Reviewer: Comments: Coverage Notice Reviewer: [email or web address] - Jaida Tavarez Notice Issued Date-Time: 06/15/2018 10:13 Notice Type: IM Discharge Notice Notice Delivered To: Patient Relationship to Patient: Speeder Tender Name: Delivery Method: HAND - Hand Delivered Joselin Days: Prior Verbal Notification: Recipient Understood Notice: Yes Recipient Signature: Yes Med Rec Note Co-signed by Attending: Coverage Notice Comment: Reviewer: [id number] - Chela Mcelroy Notice Issued Date-Time: 06/17/2018 15:06 Notice Type: IM Discharge Notice Notice Delivered To: Patient Relationship to Patient: Self Speeder Tender Name: Delivery Method: HAND - Hand Delivered Joselin Days: Prior Verbal Notification: Recipient Understood Notice: Yes Recipient Signature: Yes Med Rec Note Co-signed by Attending: Coverage Notice Comment: IMM explained, signed, given, copy placed in MR Last DP export: 06/17/18 2:15 p Patient Name: KRUNAL JAMES Page [id number] at 1545 All edits/amendments must be made on the electronic document DICTATION DATE: 06/17/181544 DRY CHAIN OPERATOR: JIGNESH 06/17/181544 RPT#: [id number] DC DATE: STATUS: ADM IN [facility] [address] [place] [address] END OF REPORT
--- NOTE | 2018-06-17 16:04 | MORECARE ---
CASE MANAGEMENT DISCHARGE SUMMARY PATIENT: KRUNAL JAMES UNIT: [id number] ADM DATE: 06/13/18 AGE: 67 : 52 SEX: M ROOM/BED: D.2227 AUTHOR: THADDEUSDOC PHYSICIAN: REFERRING PHYSICIAN: LEISA CRISTINA MD DATE OF SERVICE: 06/17/18 Discharge Plan Patient Name: KRUNAL JAMES Facility: [facility]:[place] : 1950 Planned Disposition: Home Anticipated Discharge Date: 06/15/18 Discharge Date: Expected LOS: 2 Initial Reviewer: [email or web address] Initial Review Date: 06/13/2018 Generated: 06/17/18 5:03 pm Comments DCP- Discharge Planning Updated by [email or web address]: Tonia Chan on 06/17/18 3:[address] Angelina with [facility] here and has delivered the portable O2 and will set the patient home o2. CM will continue to follow and assist with DC planning DCP- Discharge Planning Updated by [email or web address]: Chela Mcelroy on 06/17/18 2:[address] HE QUALIFIES FOR HOME OXYGEN. I CALLED AND SPOKE TO ANGELINA WITH [facility] AND OXYGEN WITH PORTABILITY ORDERED. I CALLED AND INFORMED HERRERA. THE PATIENT INSTRUCTED TO WAIT UNTIL PORTABLE OXYGEN IS HERE FOR DISCHARGE. CM WILL CONTINUE TO FOLLOW AND ASSIST WITH DISCHARGE PLANNING/NEEDS. DCP- Discharge Planning Updated by [id number]: Chela Mcelroy on 06/17/18 2:[address] Received order for discharge. He is on 2.5L NC. I removed oxygen for room air sat to check home oxygen needs. I called RT and informed I needed a walk test. He declines home health. I informed him we would order oxygen if he qualifies and he agrees and ROLANDO for [facility] signed. CM will continue to follow and assist with discharge planning/needs. DCP- Discharge Planning Updated by [id number]: Virginia Coreas on 06/13/18 11:[address] Patient Name: KRUNAL JAMES Admission Status: ER Accout number: [id number] Admission Date: 06-13-2018 : 1950 Admission Diagnosis: Attending: LEISA CRISTINA Current LOS: 1 Anticipated DC Date: 06-15-2018 Planned Disposition: Home Primary Insurance: MEDICARE A & B Discharge Planning Comments: CM met with patient's (pt in [place] at time of assessment) to complete initial dc planning assessment. CM educated patient's on the CM role and verbal consent given by her to complete assessment. Patient lives at home with his and is independent in his care at home. At discharge patient plans to return home and feels this is a safe discharge. CM discussed availability of home health, rehab services, and medical equipment. Patient denied known discharge needs at this time. CM will continue to follow and will assist as needed with dc plans/needs. Warehouse Distribution Specialist: Virginia Coreas DCPIA - Discharge Planning Initial Assessment Updated by [email or web address]: Virginia Coreas on 06/13/18 12:31 pm * Is the patient Alert and Oriented? Yes * How many steps to enter\exit or inside your home? Two * PCP Dr. Ramírez * Pharmacy [facility] [address] * Preadmission Environment Home with Family * ADLs Independent * Equipment None * List name and contact numbers for known caregivers / representatives who currently or will assist patient after discharge: Bárbara James -- [phone] * Verbal permission to speak to the caregivers and representatives has been obtained from the patient. Yes * Community resources currently utilized None * Additional services required to return to the preadmission environment? No * Can the patient safely return to the preadmission environment? Yes * Has this patient been hospitalized within the prior 30 days at any hospital? No Coverage Notice Reviewer: [id number] - Jaida Tavarez Notice Issued Date-Time: 06/15/2018 10:13 Notice Type: IM Discharge Notice Notice Delivered To: Patient Relationship to Patient: Product Management Intern Name: Delivery Method: HAND - Hand Delivered Joselin Days: Prior Verbal Notification: Recipient Understood Notice: Yes Recipient Signature: Yes Med Rec Note Co-signed by Attending: Coverage Notice Comment: Reviewer: [id number] - Chela Mcelroy Notice Issued Date-Time: 06/17/2018 15:06 Notice Type: IM Discharge Notice Notice Delivered To: Patient Relationship to Patient: Self Product Management Intern Name: Delivery Method: HAND - Hand Delivered Joselin Days: Prior Verbal Notification: Recipient Understood Notice: Yes Recipient Signature: Yes Med Rec Note Co-signed by Attending: Coverage Notice Comment: IMM explained, signed, given, copy placed in MR Last DP export: 06/17/18 2:45 p Patient Name: KRUNAL JAMES Page [phone] at 1604 All edits/amendments must be made on the electronic document DICTATION DATE: 06/17/181602 PRINTING PLATE SETTER: JIGNESH 06/17/18 160 RPT#: [id number] DC DATE: STATUS: ADM IN [facility] [address] [place] [address] END OF REPORT
--- NOTE | 2018-06-21 07:18 | MORECARE ---
CASE MANAGEMENT DISCHARGE SUMMARY PATIENT: KRUNAL JAMES UNIT: [id number] ADM DATE: 06/13/18 AGE: 67 : 52 SEX: M ROOM/BED: D.2227 AUTHOR: THADDEUS,DOC PHYSICIAN: REFERRING PHYSICIAN: LEISA CRISTINA MD DATE OF SERVICE: 06/21/18 Discharge Plan Patient Name: KRUNAL JAMES Facility: [facility]:[place] : 1950 Planned Disposition: Home Anticipated Discharge Date: 06/15/18 Discharge Date: 06/17/2018 Expected LOS: 2 Initial Reviewer: [email or web address] Initial Review Date: 06/13/2018 Generated: 06/21/18 8:17 am Comments DCP- Discharge Planning Updated by [email or web address]: Tonia Chan on 06/17/18 3:[address] Angelina with [facility] here and has delivered the portable O2 and will set the patient home o2. CM will continue to follow and assist with DC planning DCP- Discharge Planning Updated by [email or web address]: Chela Mcelroy on 06/17/18 2:[address] HE QUALIFIES FOR HOME OXYGEN. I CALLED AND SPOKE TO ANGELINA WITH [facility] AND OXYGEN WITH PORTABILITY ORDERED. I CALLED AND INFORMED [facility]. THE PATIENT INSTRUCTED TO WAIT UNTIL PORTABLE OXYGEN IS HERE FOR DISCHARGE. CM WILL CONTINUE TO FOLLOW AND ASSIST WITH DISCHARGE PLANNING/NEEDS. DCP- Discharge Planning Updated by [email or web address]: Chela Mcelroy on 06/17/18 2:[address] Received order for discharge. He is on 2.5L NC. I removed oxygen for room air sat to check home oxygen needs. I called RT and informed I needed a walk test. He declines home health. I informed him we would order oxygen if he qualifies and he agrees and ROLANDO for [facility] signed. CM will continue to follow and assist with discharge planning/needs. DCP- Discharge Planning Updated by [email or web address]: Virginia Coreas on 06/13/18 11:[address] Patient Name: KRUNAL JAMES Admission Status: ER Accout number: [id number] Admission Date: 06-13-2018 : 1950 Admission Diagnosis: Attending: LEISA CRISTINA Current LOS: 1 Anticipated DC Date: 06-15-2018 Planned Disposition: Home Primary Insurance: MEDICARE A & B Discharge Planning Comments: CM met with patient's (pt in CT at time of assessment) to complete initial dc planning assessment. CM educated patient's on the CM role and verbal consent given by her to complete assessment. Patient lives at home with his and is independent in his care at home. At discharge patient plans to return home and feels this is a safe discharge. CM discussed availability of home health, rehab services, and medical equipment. Patient denied known discharge needs at this time. CM will continue to follow and will assist as needed with dc plans/needs. Boring Mill Operator For Metal: Virginia Coreas DCPIA - Discharge Planning Initial Assessment Updated by [email or web address]: Virginia oCreas on 06/13/18 12:31 pm * Is the patient Alert and Oriented? Yes * How many steps to enter\exit or inside your home? Two * PCP Dr. Ramírez * [facility]acy [facility] * Preadmission Environment Home with Family * ADLs Independent * Equipment None * List name and contact numbers for known caregivers / representatives who currently or will assist patient after discharge: Bárbara James -- [phone] * Verbal permission to speak to the caregivers and representatives has been obtained from the patient. Yes * Community resources currently utilized None * Additional services required to return to the preadmission environment? No * Can the patient safely return to the preadmission environment? Yes * Has this patient been hospitalized within the prior 30 days at any hospital? No Coverage Notice Reviewer: [email or web address] - Jaida Tavarez Notice Issued Date-Time: 06/15/2018 10:13 Notice Type: IM Discharge Notice Notice Delivered To: Patient Relationship to Patient: Sap Data Architect Name: Delivery Method: HAND - Hand Delivered Joselin Days: Prior Verbal Notification: Recipient Understood Notice: Yes Recipient Signature: Yes Med Rec Note Co-signed by Attending: Coverage Notice Comment: Reviewer: [id number] - Chela Mcelroy Notice Issued Date-Time: 06/17/2018 15:06 Notice Type: IM Discharge Notice Notice Delivered To: Patient Relationship to Patient: Self Sap Data Architect Name: Delivery Method: HAND - Hand Delivered Joselin Days: Prior Verbal Notification: Recipient Understood Notice: Yes Recipient Signature: Yes Med Rec Note Co-signed by Attending: Coverage Notice Comment: IMM explained, signed, given, copy placed in MR Last DP export: 3/22/19 3:04 p Patient Name: KRUNAL JAMES Page [id number] at 0718 All edits/amendments must be made on the electronic document DICTATION DATE: 06/21/18716 JEWEL BLOCKER AND SAWYER: JIGNESH 06/21/18716 RPT#: [id number] DC DATE:06/17/18 STATUS: DIS IN [facility] [address] [place] [address] END OF REPORT
== END 2018-06-17 17:54 | disposition home or self-care (01) | DRG 293 ==
LOC: D.ER 08:58 → D.M3 10:29 → D.MS 10:29
PROVIDERS: Emergency Medicine; Internal Medicine Gastroenterology; ADMIT Family Medicine; ATTEND Family Medicine
PROC: 0DB68ZX Excision of Stomach, Via Natural or Artificial Opening Endoscopic, Diagnostic (ICD-10-PCS; principal; 2018-06-17 07:00)
DX: I11.0 Hypertensive heart disease with heart failure (principal); E80.6 Other disorders of bilirubin metabolism; I50.33 Acute on chronic diastolic (congestive) heart failure; I42.9 Cardiomyopathy, unspecified; I50.9 Heart failure, unspecified; I48.91 Unspecified atrial fibrillation; R63.4 Abnormal weight loss; Z68.21 Body mass index [BMI] 21.0-21.9, adult

== ENCOUNTER 2018-06-26 19:20 | Inpatient (IN) | payer MEDICARE, BC ==
[~2018-06-26] VITALS: Ht 180.3 cm; Wt 72.7 kg
--- NOTE | ~2018-06-26 | CN ---
PATIENT NAME:KRUNAL JAMES MEDICAL RECORD: [id number] : 54 LOCATION:D.M3 D.1211 ADMIT DATE: 06/26/18 ACCOUNT: [id number] CONSULTING PHYSICIAN: AMANDA HERRON MD REFERRING PHYSICIAN: JESSICA KARIMI MD DATE OF CONSULTATION: 07/03/2018 REASON FOR CONSULTATION: Worsening pneumonia. HISTORY OF PRESENT ILLNESS: Mr. James is a 67-year-old gentleman who was admitted with pneumonia and [id number] congestive heart failure. The patient was treated with antibiotic ____, but the chest x-ray was getting worse as well as the leukocytosis. This morning, the chest x-ray was worse. He has 16,000 leukocytes. He has a cough with very little sputum production. Denies any fever or chill, no night sweats. REVIEW OF SYSTEMS: As in history of present illness. PAST MEDICAL HISTORY: 1. Rheumatic heart disease. 2. Congestive heart failure. 3. Coronary artery disease. 4. History of atrial fibrillation. 5. Mitral valve replacement. 6. History of anemia. PAST SURGICAL HISTORY: 1. He has cholecystectomy. 2. Aortic and mitral valve replacement. 3. History of cardioversion for atrial fibrillation. ALLERGIES: He has no known drug allergy. MEDICATIONS: Red Seraphim is reviewed. PERSONAL AND SOCIAL HISTORY: The patient is a nonsmoker, nondrinker. FAMILY HISTORY: Significant for cardiovascular diseases. PHYSICAL EXAMINATION: GENERAL: Now, the patient is lying comfortable. He is not in acute distress. VITAL SIGNS: The blood pressure is 93/68, pulse is 100, respiration is 18, temperature is 98.2, and SpO2 is 100% on 5 liters nasal cannula. HEENT: Conjunctivae are pink. Sclerae are not icteric. NECK: Supple, no JVD. CHEST: There are bilateral crackles. No wheezing. HEART: Rhythm regular, normal sound, no murmur. ABDOMEN: Soft, bowel sounds present. No hepatosplenomegaly. RECTAL: Deferred. EXTREMITIES: No cyanosis, no clubbing, 1+ pedal edema. CENTRAL NERVOUS SYSTEM: The patient is awake and alert. There is no obvious cranial nerve abnormality. The gait was not tested. IMAGING: Chest radiograph, there is a worsening infiltrate, left basilar consolidation. There is some improvement in the right base. Stable left CONSULT REPORT [id number] KRUNAL JAMES pleural effusion. OTHER LABORATORY DATA: CBC: The WBC is 16.7, hemoglobin 10, hematocrit 31, and the platelet count is 224. Chemistry: Sodium 136, potassium 5.3, BUN is 66, and creatinine 1.4. IMPRESSION: 1. Acute hypoxic respiratory failure. 2. Bilateral pneumonia, most likely hospital-acquired pneumonia with worsening radiographically as well as leukocytosis. 3. Leukocytosis. 4. Pulmonary hypertension secondary to mitral valve and rheumatic heart diseases. 5. Left pleural effusion. 6. Congestive heart failure. RECOMMENDATIONS: 1. Change the antibiotic to Levaquin IV, Zosyn IV, and vancomycin to cover for HAP. 2. Supplemental oxygen. 3. Hold on diuretics. 4. Follow up labs and chest radiograph. 5. Check the sputum culture and sensitivity. If the pneumonia is not getting any better, the patient will need bronchoscopy. Dr. Stout, thank you for involving me in the care of Mr. James. TRANSINT:[id number] Voice Confirmation ID: [id number] DOCUMENT ID: [id number] AMANDA HERRON MD CC: [id number] DICTATION DATE: 07/03/18 1543 SENIOR FUNCTIONAL ANALYST: 07/03/18 2307 ADM IN [facility] [address] [place] [address]
[2018-06-26 19:55] LABS: BASOPHILS 0.9 % (0-2); EOSINOPHILS 1.8 % (0-7); HEMATOCRIT 34.5 % (42.0-54.0); HEMOGLOBIN 10.8 g/dL (13.5-17.5); IMMATURE GRANULOCYTES 0.4 % (0-5); LYMPHOCYTES 9.4 % (15-50); MCH 30.2 pg (26.0-34.0); MCHC 31.3 g/dL (31.0-37.0); MCV 96.4 fL (80.0-100.0); MEAN PLATELET VOLUME 9.9 fL (7.4-10.4); MONOCYTES 8.1 % (2-11); NEUTROPHILS 79.4 % (40-80); RBC 3.58 10x6/uL (4.20-6.10); WBC 9.5 10x3/uL (4.8-10.8)
[2018-06-26 20:06] LABS: PLATELET COUNT 328 10x3/uL (130-400)
[2018-06-26 20:12] LABS: INR 1.67 (0.85-1.17); PROTIME 19.1 SECONDS (11.6-15.0)
[2018-06-26 20:13] LABS: APTT 42.7 SECONDS (22.8-39.4)
[2018-06-26 20:15] VITALS: BP 115/81
[2018-06-26 20:21] LABS: ALBUMIN 3.3 g/dL (3.4-5.0); ALKALINE PHOSPHATASE 117 U/L (46-116); ALT (SGPT) 39 U/L (10-68); BILIRUBIN - TOTAL 4.08 mg/dL (0.2-1.3); CALC OSMOLALITY 273 mosm/kg (275-300); CALCIUM 8.8 mg/dL (8.5-10.1); CARBON DIOXIDE 26.4 mmol/L (21.0-32.0); CHLORIDE - SERUM 97 mmol/L (98-107); CREATININE - SERUM 1.5 mg/dL (0.6-1.3); GLUCOSE 138 mg/dL (74-106); POTASSIUM - SERUM 4.3 mmol/L (3.5-5.1); PROTEIN - SERUM 10.2 g/dL (6.4-8.2); SODIUM 133 mmol/L (136-145); UREA NITROGEN 29 mg/dL (7-18); eGFR NON AFRICAN AMERICAN 50 mL/min (90-120)
[2018-06-26 20:33] LABS: CKMB 1.8 U/L (0.0-3.6); CREATINE KINASE 58 UL (21-232); PRO BNP 4428 pg/mL (0-125)
[2018-06-26 20:34] LABS: TROPONIN-I < 0.017 ng/mL (0.000-0.060)
[2018-06-26 20:45] VITALS: BP 109/79
[2018-06-26 20:46] LABS: APPEARANCE CLEAR (CLEAR); BILIRUBIN NEGATIVE (NEGATIVE); COLOR STRAW (YELLOW); GLUCOSE NEGATIVE (NEGATIVE); KETONE NEGATIVE (NEGATIVE); NITRITE NEGATIVE (NEGATIVE); PROTEIN NEGATIVE (NEGATIVE); SPECIFIC GRAVITY 1.015 (1.005-1.020); UROBILINOGEN NORMAL (NORMAL)
--- NOTE | 2018-06-26 21:02 | NUR ---
PT REPORTS DECREASE IN SOB SINCE ARRIVAL. PT SITTING UP, PT ON 4L VIA NC.
[2018-06-26 21:15] VITALS: BP 109/78
--- NOTE | 2018-06-26 21:31 | NUR ---
PT SITTING UP ON BED, NO S/S OF ACUTE DISTRESS NOTED AT THIS TIME. O2 SAT 99% ON 2L
[2018-06-26 21:45] VITALS: BP 103/75
[2018-06-26 22:15] VITALS: BP 109/86
--- NOTE | 2018-06-26 22:40 | NUR ---
PT C/O ARM BURNING WHILE RECEIVING IV INFUSION OF ZITHROMAX, RATE DECREASED TO 125ML/HR. PT DENIES DISCOMFORT AT THIS TIME. NO S/S OF INFILTRATION NOTED.
[2018-06-26] MEDS ORDERED: MIRALAX17 GM PO (23:37)
[2018-06-27 01:37] VITALS: BP 97/66; BMI 23.3
[2018-06-27 04:00] VITALS: BP 100/73
[2018-06-27 07:37] LABS: ALBUMIN 3.3 g/dL (3.4-5.0); ANION GAP 15.3 mmol/L (8-16); BILIRUBIN - TOTAL 3.87 mg/dL (0.2-1.3); CARBON DIOXIDE 25.2 mmol/L (21.0-32.0); CREATININE - SERUM 1.5 mg/dL (0.6-1.3); POTASSIUM - SERUM 4.5 mmol/L (3.5-5.1); PROTEIN - SERUM 10.3 g/dL (6.4-8.2)
[2018-06-27 07:41] LABS: BASOPHILS 0.2 % (0-2); EOSINOPHILS 0 % (0-7); HEMATOCRIT 34.8 % (42.0-54.0); IMMATURE GRANULOCYTES 0.5 % (0-5); LYMPHOCYTES 9.5 % (15-50); MCH 30.1 pg (26.0-34.0); MCHC 31.6 g/dL (31.0-37.0); MCV 95.3 fL (80.0-100.0); MEAN PLATELET VOLUME 10.5 fL (7.4-10.4); MONOCYTES 0.9 % (2-11); NEUTROPHILS 88.9 % (40-80); PLATELET COUNT 293 10x3/uL (130-400); RBC 3.65 10x6/uL (4.20-6.10); WBC 6.5 10x3/uL (4.8-10.8)
[2018-06-27 08:42] VITALS: BP 100/70
--- NOTE | 2018-06-27 10:30 | NUR ---
PATIENT SITTING UP AT BEDSIDE. OXYGEN ON AT 5L PER N/C. ALERT/OREINT. VOICES NO NEEDS AT THIS TIME. WILL CONTINUE WITH PLAN OF CARE
[2018-06-27 12:00] VITALS: BP 96/68
--- NOTE | 2018-06-27 12:11 | NUR ---
DR PRICE INTO SEE PATIENT. NEW ORDERS RECEIVED
--- NOTE | 2018-06-27 13:02 | NUR ---
THIS NURSE TALKED WITH TELEMTRY TECH. NEW ORDERS FOR TELEMTRY. TECH STATED THAT THERE ARE NO TELEMTRIES AVAILABLE AT THIS TIME AND WILL PUT PATIENT ON HER LIST
[2018-06-27 13:42] VITALS: BMI 22.1
--- NOTE | 2018-06-27 15:28 | NUR ---
TELEMTRY TECH CALLED WITH A UNIT. ATTACHED TO PATIENT
[2018-06-27 17:19] VITALS: BP 93/67
--- NOTE | 2018-06-27 18:15 | HP ---
PATIENT: KRUNAL JAMES MEDICAL RECORD: [id number] ACCOUNT: [id number] LOCATION:[place] [address] : [birth year] ADMISSION DATE: 06/26/18 PCP: RENNY VEGA MD HISTORY AND PHYSICAL EXAMINATION HISTORY: Mr. James is a nice 67-year-old white male that comes back into the Emergency Room complaining of shortness of breath. Chest x-ray is compatible with some CHF and bilateral lower pneumonia. He was discharged from the hospital on Wednesday with congestive heart failure. He has got a little bit of swelling, which started today after being admitted. He is on IV Lasix and IV antibiotics. PAST MEDICAL HISTORY: Unchanged. See previous H&P. PAST SURGICAL HISTORY: Same. ALLERGIES: Same. MEDICATIONS: Same. FAMILY HISTORY: Same. REVIEW OF SYSTEMS: No fever. Increasing shortness of breath, productive cough, and increased ankle edema. No nausea or vomiting. No chest pain. PHYSICAL EXAMINATION: GENERAL: No distress at this time. Sitting at the side of the bed. HEENT: Sclerae nonicteric. NECK: Soft and supple. HEART: Regular. Slightly tachycardic. LUNGS: Some crackles, rales, and rhonchi bilaterally. ABDOMEN: Nontender. EXTREMITIES: Lower extremities reveal 1-2+ edema. NEUROLOGIC: Without any gross focal deficits. IMPRESSION: 1. Pneumonia. 2. CHF. 3. Hypertension. 4. Hyperlipidemia. 5. History of atrial fib. 6. History of heart tissue valve. 7. Cardiomyopathy. 8. Rheumatic heart disease. 9. Chronic anticoagulation. PLAN: 1. Place on telemetry. 2. Daily weights. 3. IV diuretics. 4. IV antibiotics and respiratory treatments. See orders for rest of plan. TRANSINT:[id number] Voice Confirmation ID: [id number] DOCUMENT ID: [id number] HISTORY AND PHYSICAL [id number] KRUNAL JAMES MARK PRICE DO at 1815 CC: [id number] DICTATION DATE: 06/27/18 1216 CATALYST UNIT OPERATOR: 06/27/18 1235 [place] [address]
--- NOTE | 2018-06-27 18:24 | NUR ---
AGREE WITH LPNS ASSESSMENT.
--- NOTE | 2018-06-27 18:29 | MORECARE ---
CASE MANAGEMENT DISCHARGE SUMMARY PATIENT: KRUNAL JAMES UNIT: [id number] ADM DATE: 06/26/18 AGE: 67 : 54 SEX: M ROOM/BED: D.1211 AUTHOR: GURVINDER TRAVIS PHYSICIAN: REFERRING PHYSICIAN: JESSICA KARIMI MD DATE OF SERVICE: 06/27/18 Discharge Plan Patient Name: KRUNAL JAMES [facility] [facility] 1950 Planned Disposition: Home Anticipated Discharge Date: Discharge Date: Expected LOS: Initial Reviewer: [email or web address] Initial Review Date: 06/26/2018 Generated: 06/27/18 7:29 pm DCPIA - Discharge Planning Initial Assessment Updated by [email or web address]: Solange Cowart on 06/27/18 6:29 pm * Is the patient Alert and Oriented? Yes * How many steps to enter\exit or inside your home? 2/3 W/ JEFFERS * PCP DR VEGA * Pharmacy [facility] * Preadmission Environment Home with Family * ADLs Independent * Equipment Oxygen * Other Equipment DENIES ANY ADDITIONAL DME * List name and contact numbers for known caregivers / representatives who currently or will assist patient after discharge: BECKY JAMES- - [phone] * Verbal permission to speak to the caregivers and representatives has been obtained from the patient. Yes * Community resources currently utilized None * Please name any agencies selected above. N/A * Additional services required to return to the preadmission environment? No * Can the patient safely return to the preadmission environment? Yes * Has this patient been hospitalized within the prior 30 days at any hospital? Yes Patient Name: KRUNAL JAMES Page 38050 at 1829 All edits/amendments must be made on the electronic document DICTATION DATE: 06/27/181828 ENTOMOLOGY PROFESSOR: JIGNESH 06/27/181828 RPT#: [id number] DC DATE: STATUS: ADM IN [facility] [address] [place] [address] END OF REPORT
--- NOTE | 2018-06-27 18:50 | MORECARE ---
CASE MANAGEMENT DISCHARGE SUMMARY PATIENT: KRUNAL JAMES UNIT: [id number] ADM DATE: 06/26/18 AGE: 67 : 54 SEX: M ROOM/BED: D.1211 AUTHOR: THADDEUS,DOC PHYSICIAN: REFERRING PHYSICIAN: JESSICA KARIMI MD DATE OF SERVICE: 06/27/18 Discharge Plan Patient Name: KRUNAL JAMES Facility: [facility]:[place] : 1950 Planned Disposition: Home Anticipated Discharge Date: Discharge Date: Expected LOS: Initial Reviewer: [email or web address] Initial Review Date: 06/26/2018 Generated: 06/27/18 7:50 pm Comments DCP- Discharge Planning Updated by [email or web address]: Solange Cowart on 06/27/18 5:[address] PATIENT READMITTED W/ SHORTNESS OF BREATH , RECENT DISCHARGE ADMITTING DX BILATERAL LOWER LOBE PNEUMONIA AND CHF. PATIENT HAS HOME OXYGEN THERAPY PORTABLE AND STATIONARY W/ [facility] HIS IS VISITING AND ANSWERED QUESTIONS. PATIENT DID NOT PATIENT HAS HAVE HOME HEALTH AT DISCHARGE. THEY MAY CONSIDER BUT ARE NOT COMMITTED TO H/H AT THIS TIME. PERHAPS WILL CONSIDER HOUSECALLS. PCP- DR VEGA PHARMACY- [facility] DENIES ANY NEEDS AT THIS TIME. WILL HAVE TRANSPORTATION TO HOME. EXPLAINED CM IS AVAILABLE TO ASSIST APPROPRIATE. DCPIA - Discharge Planning Initial Assessment Updated by [email or web address]: Solange Cowart on 06/27/18 6:29 pm * Is the patient Alert and Oriented? Yes * How many steps to enter\exit or inside your home? 2/3 W/ JFEFERS * PCP DR VEGA * Pharmacy [facility] * Preadmission Environment Home with Family * ADLs Independent * Equipment Oxygen * Other Equipment DENIES ANY ADDITIONAL DME * List name and contact numbers for known caregivers / representatives who currently or will assist patient after discharge: BECKY JAMES- - [phone] * Verbal permission to speak to the caregivers and representatives has been obtained from the patient. Yes * Community resources currently utilized None * Please name any agencies selected above. N/A * Additional services required to return to the preadmission environment? No * Can the patient safely return to the preadmission environment? Yes * Has this patient been hospitalized within the prior 30 days at any hospital? Yes Last DP export: 06/27/18 5:29 pm Patient Name: KRUNAL JAMES Page [id number] at 1850 All edits/amendments must be made on the electronic document DICTATION DATE: 06/27/181848 FIELD SERVICES ANALYST: JIGNESH 06/27/181848 RPT#: [id number] DC DATE: STATUS: ADM IN [facility] [address] [place] [address] END OF REPORT
--- NOTE | 2018-06-27 19:45 | NUR ---
THE PATIENT WAS LYING IN HIS BED, TALKING TO FAMILY WHEN STAFF ENTERED HIS ROOM. BED IS IN THE LOW POSITION WITH SIDERAILS X2 AND CALL LIGHT WITHIN REACH. THE PATIENT WAS EDUCATED ON, AND DEMONSTRATED USE OF, THE CALL LIGHT. THE PATIENT APPEARS COMFORTABLE WITH NO QUESTIONS OR CONCERNS AT THIS TIME.
[2018-06-27 21:02] VITALS: BP 88/67
[2018-06-28] VITALS: BP 97/59
--- NOTE | 2018-06-28 02:45 | NUR ---
THE PATIENT APPEARS TO BE SLEEPING COMFORTABLE. BED IS IN THE LOW POSITION WITH SIDERAILS X2 AND CALL LIGHT WITHIN REACH.
[2018-06-28 04:00] VITALS: BP 93/57
--- NOTE | 2018-06-28 07:40 | NUR ---
PT AAOX4 RESP EVEN AND NONALABORED, NO SIGNS OF DISTRESS NOTED, WILL CONTINUE TO MONITOR NO NEEDS EXPRESSED AT THIS TIME CL IN REACH
[2018-06-28 07:54] VITALS: BP 99/65
[2018-06-28 12:23] VITALS: BP 91/59
[2018-06-28 20:00] VITALS: BP 83/63
--- NOTE | 2018-06-28 20:03 | NUR ---
THE PATIENT WAS SITTING ON TH EEDGE OF HIS BED TALKING TO STAFF WHEN STAFF ENTERED HIS ROOM. TELEMETRY BATTERIES CHANGED. BED IS IN THE LOW POSITION WITH SIDERAILS X2 AND CALL LIGHT WITHIN REACH. PATIENT EDUCATED TO CALL STAFF FOR ASSISTANCE WITH ANYTHING NEEDED. PATIENT DEMONSTRATES UNDERSTANDING VIA TEACHBACK METHOD. THE PATIENT APPEARS COMFORTABLE WITH NO QUESTIONS OR CONCERNS AT THIS TIME.
[2018-06-29] VITALS: BP 93/60
--- NOTE | 2018-06-29 02:18 | NUR ---
THE PATIENT IS AWAKE, TALKING TO STAFF. HE HAS NO QUESTIONS OR CONCERNS AT THIS TIME.
[2018-06-29 04:30] VITALS: BP 91/59
[2018-06-29 05:40] LABS: BASOPHILS 0 % (0-2); EOSINOPHILS 0 % (0-7); HEMATOCRIT 29.1 % (42.0-54.0); IMMATURE GRANULOCYTES 0.2 % (0-5); MCH 29.9 pg (26.0-34.0); MCHC 30.9 g/dL (31.0-37.0); MCV 96.7 fL (80.0-100.0); MEAN PLATELET VOLUME 10.3 fL (7.4-10.4); MONOCYTES 2.4 % (2-11); NEUTROPHILS 94.4 % (40-80); PLATELET COUNT 238 10x3/uL (130-400); RBC 3.01 10x6/uL (4.20-6.10); RDW 19.3 % (11.5-14.5)
[2018-06-29 06:03] LABS: WBC 12.6 10x3/uL (4.8-10.8)
[2018-06-29 06:13] LABS: ANION GAP 10.9 mmol/L (8-16); CALCIUM 8.5 mg/dL (8.5-10.1); CARBON DIOXIDE 28.3 mmol/L (21.0-32.0); CREATININE - SERUM 1.4 mg/dL (0.6-1.3); POTASSIUM - SERUM 4.2 mmol/L (3.5-5.1)
[2018-06-29 09:25] VITALS: BP 90/63
[2018-06-29 12:46] VITALS: BP 111/70
--- NOTE | 2018-06-29 15:13 | NUR ---
Nutrition Follow Up Pt is on an AHA diet with 75% average po intake BG 134 today Weight 160lb- stable Pt reports he weighs daily at home and UBW is 158lb Pt reports trying to reduce salt at home RD following
--- NOTE | 2018-06-29 15:51 | NUR ---
AGREE WITH LPNS ASSESSMENT. PT IN BED, WATCHING TV, DENIES ANY NEEDS AT THIS TIME. CALL LIGHT IN REACH, NAD NOTED.
[2018-06-29 16:23] VITALS: BP 98/69
[2018-06-29 19:00] VITALS: BP 97/65
--- NOTE | 2018-06-29 19:40 | NUR ---
PT SITTING ON SIDE OF BED. CALL LIGHT IN REACH. PT DENIES NEEDS OR PAIN. BED IN LOW. SIDE RAILS X2. RESP EVEN AND UNLABORED. PT IS UP ADLIB USES URINAL. A/O X4. WILL CONTINUE TO MONITOR
[2018-06-30 00:34] VITALS: BP 90/57
--- NOTE | 2018-06-30 00:57 | NUR ---
PT SITTING UP IN BED. CALL LIGHT IN REACH. MOM IN ROOM. DENIES NEEDS AT THIS TIME. TOILETED PT TWICE AND HAS NOT VOIDED YET EVEN THOUGH HE SWEARS HE URINATED ALOT. THERE WAS NOTHING IN THE BED SIDE COMMODE. WILL CONTINUE TO MONITOR
--- NOTE | 2018-06-30 00:59 | NUR ---
PT SITTING UP IN BED. CALL LIGHT IN REACH. PT DENIES NEEDS OR PAIN AT THIS TIME. BED IN LOW. SIDE RAILS X2. NOT FALL RISK. STANDS BY SINK TO USE URINAL. WILL CONTINUE TO MONITOR.
--- NOTE | 2018-06-30 02:17 | NUR ---
I have reviewed this patient and I concur with the Shift Assessment completed by the Licensed Practical Nurse today this shift.
[2018-06-30 04:38] VITALS: BP 91/47
[2018-06-30 05:25] LABS: BASOPHILS 0 % (0-2); EOSINOPHILS 0 % (0-7); HEMOGLOBIN 7.9 g/dL (13.5-17.5); IMMATURE GRANULOCYTES 0.7 % (0-5); LYMPHOCYTES 3.1 % (15-50); MCHC 31.6 g/dL (31.0-37.0); MCV 95.1 fL (80.0-100.0); MEAN PLATELET VOLUME 10.1 fL (7.4-10.4); MONOCYTES 3.5 % (2-11); NEUTROPHILS 92.7 % (40-80); RBC 2.63 10x6/uL (4.20-6.10); RDW 19.3 % (11.5-14.5); WBC 10.3 10x3/uL (4.8-10.8)
[2018-06-30 05:30] LABS: PLATELET COUNT 186 10x3/uL (130-400)
[2018-06-30 05:54] LABS: ANION GAP 11.3 mmol/L (8-16); CALCIUM 8.3 mg/dL (8.5-10.1); CARBON DIOXIDE 27.7 mmol/L (21.0-32.0); CREATININE - SERUM 1.3 mg/dL (0.6-1.3)
--- NOTE | 2018-06-30 06:26 | NUR ---
PT SITTING UP IN BED. CL IN REACH. DENIES NEEDS AT THIS TIME. WCTM
--- NOTE | 2018-06-30 07:25 | NUR ---
SITTING UP ON SIDE OF BED. DENIES ANY NEEDS AT THIS TIME.
--- NOTE | 2018-06-30 07:30 | NUR ---
SITTING UP ON SIDE OF BED. DENIES ANY NEEDS AT THIS TIME.
--- NOTE | 2018-06-30 07:50 | NUR ---
ASSESSMENT COMPLETE. SL TO R FA. O2 5L NC IN USE. MOVIE EDITOR SHOWING AFIB 91 PER TECH. COLOR PALE. DENIES ANY NEEDS AT THIS TIME.
[2018-06-30 08:18] VITALS: BP 95/58
[2018-06-30 12:07] LABS: % SATURATION 18 % (15-55); IRON 50 ug/dl (35-150); TOTAL IRON BIND CAPACITY 264 ug/dl (260-445); UNSAT IRON BIND CAPACITY 214 ug/dl (150-375)
[2018-06-30 12:24] VITALS: BP 86/56
--- NOTE | 2018-06-30 15:38 | NUR ---
1st UNIT PRBC INFUSION STARTED. VSS. DENIES ANY NEEDS AT THIS TIME.
--- NOTE | 2018-06-30 18:20 | NUR ---
1ST UNIT OF PRBC INFUSION COMPLETED. FAMILY AT BEDSIDE.
--- NOTE | 2018-06-30 18:50 | NUR ---
SPOKE WITH NORA STAUFFER APN REGARDING + STOOL GUIAC. ORDER RECIEVED TO CONSULT GI.
--- NOTE | 2018-06-30 18:55 | NUR ---
SPOKE WITH DR MOORE REGARDING CONSULT. WILL SEE PATIENT TOMORROW.
--- NOTE | 2018-06-30 20:05 | NUR ---
FAMILY MEMBER AT BEDSIDE. CALL LIGHT IN REACH.
[2018-06-30 21:06] VITALS: BP 103/64
--- NOTE | 2018-06-30 21:45 | NUR ---
2TH DOSE OF BLOOD TRANSFUTION COMMPLETED, CONTINUE PLAN OF CARE.
--- NOTE | 2018-06-30 22:45 | NUR ---
I have reviewed this patient and I concur with the Shift Assessment completed by the Licensed Practical Nurse today this shift.
[2018-07-01] VITALS (7 sets, daily range): BP systolic 99–143; BP diastolic 45–70
--- NOTE | 2018-07-01 02:30 | NUR ---
REST IN BED, EYE CLOSE, CALL LIGHT IN REACH.
[2018-07-01 07:13] LABS: ALBUMIN 2.7 g/dL (3.4-5.0); ANION GAP 11.3 mmol/L (8-16); BILIRUBIN - TOTAL 2.64 mg/dL (0.2-1.3); CALCIUM 8.1 mg/dL (8.5-10.1); CARBON DIOXIDE 25.6 mmol/L (21.0-32.0); CREATININE - SERUM 1.3 mg/dL (0.6-1.3); POTASSIUM - SERUM 3.9 mmol/L (3.5-5.1); PROTEIN - SERUM 7.5 g/dL (6.4-8.2)
--- NOTE | 2018-07-01 07:30 | NUR ---
PT RESTING IN BED. SHIFT ASSESSMENT PERFORMED. VSS AND WNL. DENIES PAIN AT THIS TIME, DENIES NEEDS AT THIS TIME, WILL CONT TO FOLLOW PLAN OF CARE
[2018-07-01 07:35] LABS: BASOPHILS 0 % (0-2); EOSINOPHILS 0 % (0-7); HEMATOCRIT 29.8 % (42.0-54.0); HEMOGLOBIN 9.6 g/dL (13.5-17.5); IMMATURE GRANULOCYTES 0.9 % (0-5); LYMPHOCYTES 3.4 % (15-50); MCH 29.8 pg (26.0-34.0); MCHC 32.2 g/dL (31.0-37.0); MCV 92.5 fL (80.0-100.0); MEAN PLATELET VOLUME 10.5 fL (7.4-10.4); MONOCYTES 4.3 % (2-11); NEUTROPHILS 91.4 % (40-80); PLATELET COUNT 157 10x3/uL (130-400); RBC 3.22 10x6/uL (4.20-6.10); RDW 20.4 % (11.5-14.5); WBC 10.2 10x3/uL (4.8-10.8)
[2018-07-01 10:19] LABS: FOLATE (FOLIC ACID) - SERUM 8.1 ng/mL (>3.0)
--- NOTE | 2018-07-01 11:22 | NUR ---
PT REQUEST TO WALK WITH NURSE DOWN THE JONAS. OBTAINED GAIT BELT FROM PHYSICAL THERAPY. AMBULATED PT TO END OF JONAS AND BACK TO BED WITH PORTABLE OXYGEN AT 2L VIA NC, UTILIZED GAIT BELT. PT SLIGHTLY SOB BY THE TIME HE MADE IT BACK TO BED. ENCOURAGED PT TO TAKE DEEP BREATHS THROUGH HIS NOSE.
--- NOTE | 2018-07-01 18:23 | NUR ---
PT RESTING IN BED, FRIEND PRESENT AT BEDSIDE. DENIES ANY NEEDS AT THIS TIME, CONT O2 NOTED AT 2LNC
--- NOTE | 2018-07-01 20:29 | NUR ---
THE PATIENT WAS LYING IN BED AND WATCHING TELEVISION WHEN STAFF ENTERED HER ROOM. BED IS IN TH ELOW POSITION WITH SIDERAILS X2 AND CALL LIGHT WITHIN REACH. THE PATIENT DEMONSTRATES APPROPRIATE USE OF A CALL L IGHT. THE PATIENT HAS NO QUESTIONS OR CONCERNS AT THIS TIME.
[2018-07-02 01:08] VITALS: BP 103/72
--- NOTE | 2018-07-02 02:31 | NUR ---
THE PATIENT APPEARS TO BE SLEEPING WITH BED IN THE LOW POSITION, SIDERAILS X2, AND CALL LIGHT WITHIN REACH.
[2018-07-02 05:29] VITALS: BP 91/61
--- NOTE | 2018-07-02 07:54 | NUR ---
ROUNDING DONE WITH PATIENT RESTING, EYES CLOSED. RESP ARE EVEN. ON 4L PER NC. IN REPORT, PATIENT IS DNR. ON HEART MONITOR SHOWING CAF, HR 91. RIGHT FA PIV SEEN WITH SALINE LOCK.
--- NOTE | 2018-07-02 08:00 | NUR ---
I HAVE REVIEWED THE CHART AND CAN NOT FIND IT ANYWHERE IN THE CHART FOR DNR.
[2018-07-02 08:07] LABS: BASOPHILS 0.1 % (0-2); EOSINOPHILS 0 % (0-7); HEMATOCRIT 28.7 % (42.0-54.0); HEMOGLOBIN 9.2 g/dL (13.5-17.5); IMMATURE GRANULOCYTES 0.5 % (0-5); LYMPHOCYTES 3.8 % (15-50); MCH 30.2 pg (26.0-34.0); MCHC 32.1 g/dL (31.0-37.0); MCV 94.1 fL (80.0-100.0); MEAN PLATELET VOLUME 10.7 fL (7.4-10.4); MONOCYTES 3.2 % (2-11); NEUTROPHILS 92.4 % (40-80); PLATELET COUNT 169 10x3/uL (130-400); RBC 3.05 10x6/uL (4.20-6.10); RDW 20.6 % (11.5-14.5); WBC 11.3 10x3/uL (4.8-10.8)
[2018-07-02 08:08] LABS: ALBUMIN 2.7 g/dL (3.4-5.0); ANION GAP 15.3 mmol/L (8-16); BILIRUBIN - TOTAL 2.51 mg/dL (0.2-1.3); CALCIUM 8.1 mg/dL (8.5-10.1); CARBON DIOXIDE 23.9 mmol/L (21.0-32.0); CREATININE - SERUM 1.1 mg/dL (0.6-1.3); POTASSIUM - SERUM 4.2 mmol/L (3.5-5.1); PROTEIN - SERUM 7.3 g/dL (6.4-8.2)
[2018-07-02 08:27] VITALS: BP 102/77
--- NOTE | 2018-07-02 08:31 | NUR ---
PAGE INTO NORA ROMERO APN R/T BLOOD PRESSURE OF 102/77 AND LASIX IS ORDERED. AWATING CALL BACK.
--- NOTE | 2018-07-02 08:48 | NUR ---
NORA ROMERO APN TO CALL BACK AND I WAS GIVEN THE OKAY TO HOLD THE LASIX AND PROSCAR UNTIL DR GREENWOOD SEE'S THE PATIENT.
[2018-07-02 12:35] VITALS: BP 108/75
--- NOTE | 2018-07-02 13:21 | NUR ---
DR GREENWOOD HERE TO SEE PATIENT.
--- NOTE | 2018-07-02 13:56 | NUR ---
COMPLETE BED LINEN CHANGE DONE AND PATIENT IS WASHING UP WITH BATH WIPES.
[2018-07-02 16:53] VITALS: BP 100/71
--- NOTE | 2018-07-02 17:05 | NUR ---
ATE A FEW BITES OF SUPPER, SPOUSE IS AT BEDSIDE. DENIES NEEDS AT THIS TIME.
--- NOTE | 2018-07-02 19:00 | NUR ---
PATIENT RESTING IN BED AND DENIES NEEDS AT THIS TIME. AT BEDSIDE. BED IN LOWEST POSITION AND CALL LIGHT WITHIN REACH. ENCOURAGED THE PATIENT TO CALL IF HE HAS NEEDS. WILL CONTINUE TO MONITOR.
[2018-07-02 20:21] VITALS: BP 101/68
[2018-07-03 00:12] VITALS: BP 116/87
[2018-07-03 04:25] VITALS: BP 102/66
[2018-07-03 05:54] LABS: BASOPHILS 0.1 % (0-2); EOSINOPHILS 0 % (0-7); HEMATOCRIT 31.9 % (42.0-54.0); LYMPHOCYTES 5.3 % (15-50); MCH 30.4 pg (26.0-34.0); MCHC 31.3 g/dL (31.0-37.0); MEAN PLATELET VOLUME 10.6 fL (7.4-10.4); MONOCYTES 6.7 % (2-11); NEUTROPHILS 86.9 % (40-80); RBC 3.29 10x6/uL (4.20-6.10); RDW 21.1 % (11.5-14.5)
[2018-07-03 05:55] LABS: PLATELET COUNT 224 10x3/uL (130-400); WBC 16.7 10x3/uL (4.8-10.8)
[2018-07-03 06:13] LABS: ALBUMIN 2.7 g/dL (3.4-5.0); BILIRUBIN - TOTAL 2.67 mg/dL (0.2-1.3); CALCIUM 8.3 mg/dL (8.5-10.1); PROTEIN - SERUM 7.4 g/dL (6.4-8.2)
[2018-07-03 06:14] LABS: CREATININE - SERUM 1.4 mg/dL (0.6-1.3)
[2018-07-03 06:15] LABS: ANION GAP 13.3 mmol/L (8-16); POTASSIUM - SERUM 5.3 mmol/L (3.5-5.1)
[2018-07-03 08:39] VITALS: BP 94/70
--- NOTE | 2018-07-03 11:00 | NUR ---
ALERT AND ORIENTED X4. SITTING UP IN CHAIR. REPORTS FAMILY WANTING TRANSFER TO [place] DUE TO WORSENING CONDITIONS. REPORT TO PATIENT REQUEST. TALKS WITH PATIENT AND FAMILY. PULMONOLOGY AND CARDIOLOGY CONSULTED. CONTINUE PLAN OF CARE AND SAFETY PRECAUTIONS. HYPOTENSION REPORTED TO .
[2018-07-03 12:52] VITALS: BP 93/68
[2018-07-03 16:00] VITALS: BP 95/61
--- NOTE | 2018-07-03 19:28 | NUR ---
PT IN BED. AT BEDSIDE. SALINE LOCKED IV PER PT REQUEST. PT DENIES FURTHER NEEDS.
[2018-07-03 20:19] VITALS: BP 102/75
[2018-07-04] VITALS (22 sets, daily range): BP systolic 79–118; BP diastolic 39–666; Ht 180.3 cm; Wt 72.7 kg
--- NOTE | 2018-07-04 04:01 | NUR ---
I have reviewed this patient and I concur with the Shift Assessment completed by the Licensed Practical Nurse today this shift.
[2018-07-04 06:32] LABS: BASOPHILS 0 % (0-2); EOSINOPHILS 0 % (0-7); HEMATOCRIT 32.3 % (42.0-54.0); HEMOGLOBIN 10.1 g/dL (13.5-17.5); IMMATURE GRANULOCYTES 0.7 % (0-5); LYMPHOCYTES 6.6 % (15-50); MCH 30.4 pg (26.0-34.0); MCHC 31.3 g/dL (31.0-37.0); MCV 97.3 fL (80.0-100.0); MEAN PLATELET VOLUME 10.9 fL (7.4-10.4); MONOCYTES 5.5 % (2-11); NEUTROPHILS 87.2 % (40-80); PLATELET COUNT 243 10x3/uL (130-400); RBC 3.32 10x6/uL (4.20-6.10); RDW 21.4 % (11.5-14.5); WBC 20.9 10x3/uL (4.8-10.8)
[2018-07-04 06:47] LABS: ALBUMIN 2.8 g/dL (3.4-5.0); ANION GAP 19.7 mmol/L (8-16); BILIRUBIN - TOTAL 5.14 mg/dL (0.2-1.3); CALCIUM 8.2 mg/dL (8.5-10.1); CARBON DIOXIDE 22.7 mmol/L (21.0-32.0); POTASSIUM - SERUM 5.4 mmol/L (3.5-5.1); PROTEIN - SERUM 7.5 g/dL (6.4-8.2)
--- NOTE | 2018-07-04 06:48 | NUR ---
PT APPEARS TO BE DECLINING DESPITE NO MAJOR CHANGE IN VS. VOICED CONCERNS TO DR GREENWOOD WHO SAID "SEND HIM TO THE ICU IF YOU HAVE TO" ICU CALLED TO VIEW PT. ORDERS GIVEN FOR ABG, UA, AND BNP AWAITING RESULTS. INFORMATICA ARCHITECT NOTIFIED.
[2018-07-04 06:49] LABS: CREATININE - SERUM 2.3 mg/dL (0.6-1.3)
[2018-07-04 06:50] LABS: APPEARANCE CLEAR (CLEAR); BILIRUBIN NEGATIVE (NEGATIVE); COLOR YELLOW (YELLOW); GLUCOSE NEGATIVE (NEGATIVE); KETONE NEGATIVE (NEGATIVE); NITRITE NEGATIVE (NEGATIVE); PROTEIN NEGATIVE (NEGATIVE); UROBILINOGEN NORMAL (NORMAL)
--- NOTE | 2018-07-04 08:23 | NUR ---
LETHARGIC AND ORIENTED X3. SITUATIONAL DISORIENTATION. AROUSES TO STIMULI. NOTIFY RAEGAN CAICEDO OF ABNORMAL LAB RESULTS. RADIOLOGY AT BEDSIDE FOR XRAY.
[2018-07-04 09:31] LABS: % SATURATION 18 % (15-55); IRON 54 ug/dl (35-150); TOTAL IRON BIND CAPACITY 294 ug/dl (260-445); UNSAT IRON BIND CAPACITY 240 ug/dl (150-375)
[2018-07-04 09:54] LABS: THYROID STIMULATING HORMONE 3.21 uIU/mL (0.36-3.74)
--- NOTE | 2018-07-04 09:57 | NUR ---
WENT TO GO AND GET THIS PATIENT FOR A V/Q SCAN. UPON EXPLAINING THE EXAM TO THE PATIENT, HE STATED HE WOULD BE UNABLE TO LAY FLAT FOR THIS EXAM AND COULD NOT TOLERATE IT. THIS EXAM IS CANCELLED. IF THE PATIENT AGREES/CAN TOLERATE THE EXAM AT A LATER TIME, THIS EXAM WILL NEED TO BE RE-ORDERED
--- NOTE | 2018-07-04 10:28 | MORECARE ---
CASE MANAGEMENT DISCHARGE SUMMARY PATIENT: KRUNAL JAMES UNIT: [id number] ADM DATE: 06/26/18 AGE: 67 : 52 SEX: M ROOM/BED: D.1211 AUTHOR: THADDEUS,DOC PHYSICIAN: REFERRING PHYSICIAN: JESSICA KARIMI MD DATE OF SERVICE: 07/04/18 Discharge Plan Patient Name: KRUNAL JAMES Facility: [facility]:[place] : 1950 Planned Disposition: Home Anticipated Discharge Date: Discharge Date: Expected LOS: Initial Reviewer: [id number] Initial Review Date: 06/26/2018 Generated: 07/04/18 11:28 am Comments DCP- Discharge Planning Updated by [email or web address]: Solange Cowart on 07/04/18 9:[address] PATIENT IS CRITICALLY ILL. DECLINING STATUS. DR QUARLES, CARDIOLOGY, ON UNIT SEEING THE PATIENT THIS EARLY AM. PATIENT IS BEING TRANSFERED TO ICU . CM TO FOLLOW. DCP- Discharge Planning Updated by [email or web address]: Solange Cowart on 06/27/18 5:[address] PATIENT READMITTED W/ SHORTNESS OF BREATH , RECENT DISCHARGE ADMITTING DX BILATERAL LOWER LOBE PNEUMONIA AND CHF. PATIENT HAS HOME OXYGEN THERAPY PORTABLE AND STATIONARY W/ [facility] HIS IS VISITING AND ANSWERED QUESTIONS. PATIENT DID NOT PATIENT HAS HAVE HOME HEALTH AT DISCHARGE. THEY MAY CONSIDER BUT ARE NOT COMMITTED TO H/H AT THIS TIME. PERHAPS WILL CONSIDER HOUSECALLS. PCP- DR VEGA [facility] DENIES ANY NEEDS AT THIS TIME. WILL HAVE TRANSPORTATION TO HOME. EXPLAINED CM IS AVAILABLE TO ASSIST APPROPRIATE. DCPIA - Discharge Planning Initial Assessment Updated by [email or web address]: Solange Cowart on 06/27/18 6:29 pm * Is the patient Alert and Oriented? Yes * How many steps to enter\exit or inside your home? 2/3 W/ JEFFERS * PCP DR VEGA * [facility]acy [facility] * Preadmission Environment Home with Family * ADLs Independent * Equipment Oxygen * Other Equipment DENIES ANY ADDITIONAL DME * List name and contact numbers for known caregivers / representatives who currently or will assist patient after discharge: BECKY JAMES- - [phone] * Verbal permission to speak to the caregivers and representatives has been obtained from the patient. Yes * Community resources currently utilized None * Please name any agencies selected above. N/A * Additional services required to return to the preadmission environment? No * Can the patient safely return to the preadmission environment? Yes * Has this patient been hospitalized within the prior 30 days at any hospital? Yes Last DP export: 06/27/18 5:50 pm Patient Name: KRUNAL JAMES Page [phone] at 1028 All edits/amendments must be made on the electronic document DICTATION DATE: 07/04/18 1027 BUS STEWARD: JIGNESH 07/04/18 1027 RPT#: [id number] DC DATE: STATUS: ADM IN [facility] [address] [place] [address] END OF REPORT
--- NOTE | 2018-07-04 10:40 | NUR ---
PT ASSISTED INTO ICU BED, ESTEVES CATH PLACED, MONITORS ON AND WORKING, VITALS STABLE, PT ON 4L NC, PT AWAKE AND ALERT, FAMILY AT BEDSIDE. CALL LIGHT WITHIN REACH, WILL CONTINUE TO OBSERVE.
--- NOTE | 2018-07-04 10:45 | NUR ---
TRANSPORT TO ROOM 2303 VIA WHEELCHAIR PER PATIENT REQUEST. REPORT GIVEN TO HOWARD DE LA FUENTE.
--- NOTE | 2018-07-04 13:00 | NUR ---
MONITORS ON AND WORKING, PT AWAKE AND ALERT, PERIODS OF CONFUSION. CALL LIGHT WITHIN REACH, WILL CONTINUE TO OBSERVE.
--- NOTE | 2018-07-04 15:00 | NUR ---
NO CHANGES, SEE FLOW SHEET FOR FURTHER DETIALS. WILL CONTINUE TO OBSERVE. CALL LIGHT WITHIN REACH. MONITORS ON AND WORKING.
--- NOTE | 2018-07-04 15:02 | NUR ---
ANOTHER V/Q SCAN WAS ORDERED. THE PATIENT AGREED TO TRY THE EXAM THIS TIME. BROUGHT PATIENT TO THE DEPARTMENT. PATIENT WAS LAYING DOWN AND THE MASK FOR VENTILATION WAS PLACED. PRIOR TO THE INHALATION OF XE-133, HE STATED HE COULD NOT BREATHE AND WANTED TO SIT UP. ONCE HE SAT UP TO CATCH HIS BREATH, HE REFUSED TO DO VENTILATION PORTION OF EXAM. ASKED IF HE WOULD TRY TO DO THE PERFUSION PORTION AND HE REFUSED THAT WELL STATING HE COULD NOT BREATHE OR TOLERATE EXAM. EXAM CANCELLED AND PATIENT WAS TAKEN BACK TO ICU.
--- NOTE | 2018-07-04 15:34 | NUR ---
Nutrition Follow Up: Pt has been moved to ICU for respiratory distress Calorie count ordered today No recent weight to review Pt ate 0% of all meals yesterday on cardiac diet ICU RD to follow up tomorrow
[2018-07-04 16:01] LABS: HEMATOCRIT 30.8 % (42.0-54.0); HEMOGLOBIN 9.5 g/dL (13.5-17.5)
--- NOTE | 2018-07-04 19:15 | NUR ---
REPORT RECEIVED SHIFT ASSESSMENT COMPLETED SEE FLOWSHEET. PT VERY ANXIOUS AND C/O SOB. SPO2 92-98% FAN PLACED AT BEDSIDE AND AIR TEMP TURNED DOWN FOR PT COMFORT. 1:1 SUPPORT PROVIDED. PT DID CALM SOMEWHAT WITH CONSTANT 1:1 INTERVENTION BUT IMMEDIATELY BECAME ANXIOUS STATING "I CANT BREATH" WHEN LEFT ALONE. 1:1 BED IS IN DIRECT VISUAL LINE OF NURSES STATION. CALL LIGHT IN REACH. IV LINES ARE CURRENT AND LEFT SC IS AWAITING CLEARANCE FOR USE. PCXR HAS BEEN DONE WILL BEGIN TO USE WHEN CLEARED. DRESSING NOTED TO HAVE SOME BLEEDING. PRESSURE DRESSING APPLIED. PT WITH HX OF ANTICOAGULATION DIFFICULTIES. BED IN LOW POSITION SAFETY OBSERVED. ALL ALARMS SET AND VERIFIED
--- NOTE | 2018-07-04 19:54 | NUR ---
PT WITH INCREASED RESP AND ANXIETY DR. KARIMI NOTIFIED WITH NEW ORDERS RECEIVED AND NOTED RT NOTIFIED OF NEED FOR ABG. PT AWARE OF INTERVENTION IN PROGRESS
--- NOTE | 2018-07-04 20:30 | NUR ---
DR. KARIMI AT BEDSIDE. PT WITH DECREASED RESPONSIVENESS AND WITH NO ANXIETY. ABG'S ORDERED FOR 9PM RT NOTIFIED.
--- NOTE | 2018-07-04 21:15 | NUR ---
ABG RESULTS CALLED TO DR. KARIMI. PT NOW WITH MARKED DECREASED RESP. LEVOPHED AT 20MCG/MIN TO MAINTAIN ADEQUATE PERFUSION. NEW ORDERS RECEIVED AND NOTED RT CALLED TO PLACE BIPAP AND RECHECK ABGS IN 30 MIN. AT BEDSIDE AWARE OF CRITICAL STATUS OF PT. QUESTIONS ANSWERED
--- NOTE | 2018-07-04 21:30 | NUR ---
DR. KARIMI AT BEDSIDE TO TALK WITH . POC DISCUSSED AND ALLOWED TO ASK QUESTIONS AND THEY WERE ANSWERED PER DR. KARIMI. DID DISCUSS BIPAP AND CURRENT IV'S SPECIFICALLY LEVOPHED. DR. KARIMI DID STATE TO LEAVE BIPAP ON FOR NOW AND TO KEEP WITH LEVOPHED BUT TO NOT CHANGE ANYTHING AT THIS TIME. TO CONSULT HOSPICE.
--- NOTE | 2018-07-04 22:00 | NUR ---
CALL TO [facility] ANSWERING SERVICE
--- NOTE | 2018-07-04 22:20 | NUR ---
CALL FROM HOSPICE STATING THEY WERE ON THE WAY. NOTIFIED OF STATUS. PASTORAL SERVICES OFFERED TO WHO DECLINED.
--- NOTE | 2018-07-04 22:35 | NUR ---
DR. KAIRMI AT BEDSIDE TO PRONOUNCE, AT BEDSIDE
--- NOTE | 2018-07-04 22:40 | NUR ---
CALL PLACED TO [facility] FOR REFERRAL. HAD ALREADY VOICED THAT PT WAS NOT AN ORGAN DONOR AND DECLINED TO COME TO THE PHONE TO SPEAK WITH THE PYTHON CONSULTANT WHEN ASKED AGAIN REPEATING "HE IS NOT GOING TO BE A DONOR "
--- NOTE | 2018-07-04 23:00 | NUR ---
CALL TO HOME OF PT'S 'S CHOICE [facility] WHO STATED [facility] FROM [place] WILL SALES AND SERVICE OFFICER THE BODY
--- NOTE | 2018-07-05 01:08 | NUR ---
BODY RELEASED TO [facility] WITH NO PERSONAL BELONGINGS SENT, ALL HAD BEEN TAKEN BY PRIOR TO ADMISSION TO ICU.
--- NOTE | 2018-07-05 09:04 | MORECARE ---
CASE MANAGEMENT DISCHARGE SUMMARY PATIENT: KRUNAL JAMES UNIT: [id number] ADM DATE: 06/26/18 AGE: 67 : 52 SEX: M ROOM/BED: D.2303 AUTHOR: THADDEUS,DOC PHYSICIAN: REFERRING PHYSICIAN: JESSICA KARIMI MD DATE OF SERVICE: 07/05/18 Discharge Plan Patient Name: KRUNAL JAMES Facility: [facility]:[place] : 1950 Planned Disposition: Home Anticipated Discharge Date: Discharge Date: 07/04/2018 Expected LOS: Initial Reviewer: [email or web address] Initial Review Date: 06/26/2018 Generated: 07/05/18 10:04 am DCP- Discharge Planning Updated by [email or web address]: Solange Cowart on 07/04/18 9:[address] PATIENT IS CRITICALLY ILL. DECLINING STATUS. DR QUARLES, CARDIOLOGY, ON UNIT SEEING THE PATIENT THIS EARLY AM. PATIENT IS BEING TRANSFERED TO ICU . CM TO FOLLOW. DCP- Discharge Planning Updated by [email or web address]: Solange Cowart on 06/27/18 5:[address] PATIENT READMITTED W/ SHORTNESS OF BREATH , RECENT DISCHARGE ADMITTING DX BILATERAL LOWER LOBE PNEUMONIA AND CHF. PATIENT HAS HOME OXYGEN THERAPY PORTABLE AND STATIONARY W/ [facility] HIS IS VISITING AND ANSWERED QUESTIONS. PATIENT DID NOT PATIENT HAS HAVE HOME HEALTH AT DISCHARGE. THEY MAY CONSIDER BUT ARE NOT COMMITTED TO H/H AT THIS TIME. PERHAPS WILL CONSIDER HOUSECALLS. PCP- DR [facility] [place] [facility] DENIES ANY NEEDS AT THIS TIME. WILL HAVE TRANSPORTATION TO HOME. EXPLAINED CM IS AVAILABLE TO ASSIST APPROPRIATE. DCPIA - Discharge Planning Initial Assessment Updated by [email or web address]: Solange Cowart on 06/27/18 6:29 pm * Is the patient Alert and Oriented? Yes * How many steps to enter\exit or inside your home? 2/3 W/ JEFFERS * PCP DR VEGA * [facility] [place] * Preadmission Environment Home with Family * ADLs Independent * Equipment Oxygen * Other Equipment DENIES ANY ADDITIONAL DME * List name and contact numbers for known caregivers / representatives who currently or will assist patient after discharge: BECKY JAMES- - [phone] * Verbal permission to speak to the caregivers and representatives has been obtained from the patient. Yes * Community resources currently utilized None * Please name any agencies selected above. N/A * Additional services required to return to the preadmission environment? No * Can the patient safely return to the preadmission environment? Yes * Has this patient been hospitalized within the prior 30 days at any hospital? Yes Last DP export: 07/04/18 9:28 am Patient Name: KRUNAL JAMES Page [id number] at 0904 All edits/amendments must be made on the electronic document DICTATION DATE: 07/05/18902 GAS METER REPAIRER: JIGNESH 07/05/18902 RPT#: [id number] DC DATE:07/04/18 STATUS: DIS IN [facility] [address] [place] [address] END OF REPORT
[2018-07-05 09:17] LABS: FOLATE (FOLIC ACID) - SERUM >20.0 ng/mL (>3.0)
--- NOTE | 2018-07-05 13:13 | CN ---
PATIENT NAME:KRUNAL JAMES MEDICAL RECORD: [id number] : 54 LOCATION:[id number] ADMIT DATE: 06/26/18 ACCOUNT: [id number] CONSULTING PHYSICIAN: MARY QUARLES MD REFERRING PHYSICIAN: JESSICA KARIMI MD DATE OF CONSULTATION: 07/03/2018 HISTORY: A 67-year-old gentleman with history of mitral and aortic valve disease, status post tissue replacement. He has history of cardiomyopathy, most recent EF 40%. He has been having increasing dyspnea on exertion. Recently discharged from GI bleed. He had some volume overload with his anemia on this admission and marked dyspnea. We are asked to see him concerning his cardiovascular status. PAST MEDICAL HISTORY: Includes; 1. History of aortic valve and mitral valve disease as described above. 2. Cardiomyopathy, improved on therapy. 3. Paroxysmal atrial fibrillation. ALLERGIES: None known. HOME MEDICATIONS: Include Protonix 40 mg p.o. daily, Lasix 40 mg p.o. daily, potassium supplementation, Cymbalta 30 daily, fentanyl patch, Aldactone 25 daily, carvedilol 6.25 daily, amiodarone 200 b.i.d., and Xarelto 15 daily. SOCIAL HISTORY: He is nonsmoker. Previously, he was able to take care of all his ADLs. Nondrinker. REVIEW OF SYSTEMS: The patient reports easy bruising but reports no swollen glands. The patient reports no fever, no night sweats, no significant weight gain, no significant weight loss. No significant exercise tolerance. The patient reports no dry eyes, no irritation, no vision change. Patient reports no difficulty hearing and no ear pain. Patient reports no frequent nose bleeds or nose and sinus problems. Patient reports on arm pain on exertion. No shortness of breath while lying down. No history of heart murmur. Patient reports no cough, no wheezing or coughing up blood. Patient reports no abdominal pain, no vomiting. Normal appetite. No diarrhea and not vomiting blood. No nausea and no constipation. Patient reports no incontinence. No difficulty urinating. No hematuria. No increased frequency. Patient reports no muscle aches. No weakness, no arthralgias, no back pain. No swelling of the extremities. Patient reports no abnormal mole, no jaundice, no rashes. Reports no loss of consciousness. No weakness and no numbness. No seizures, dizziness, or headaches. The patient reports no depression, no sleep disturbance, feeling safe in a relationship and no alcohol abuse. Patient reports on fatigue. Reports no runny nose or sinus pressure. No itching, no hives, and no frequent sneezing. PHYSICAL EXAMINATION: GENERAL: Chronically ill-appearing gentleman, in no acute distress. VITAL SIGNS: Blood pressure 94/70. Pulse 102. HEENT: Normocephalic and atraumatic. Some temporal wasting. NECK: No bruits noted. HEART: Regular. II/ systolic ejection murmur. LUNGS: Fair air excursion. Fair air movement. ABDOMEN: Nontender. CONSULT REPORT [id number] KRUNAL JAMES EXTREMITIES: Pulses are 2+. There is 1+ edema. IMPRESSION: Probable mild volume overload, multifactorial, with recent anemia; hypoalbuminemia; and mild myopathy. Given long-term amiodarone therapy, we will decrease this to 100 mg p.o. daily. Additionally, we will check thyroid levels. TRANSINT:[id number] Voice Confirmation ID: [id number] DOCUMENT ID: [id number] MARY QUARLES MD at 1313 CC: [id number] DICTATION DATE: 07/03/18 1252 LAND DEVELOPMENT PROJECT MANAGER: 07/03/181933 DIS IN 07/04/18 [place] [id number] [place] [address]
--- NOTE | 2018-07-05 13:13 | EC ---
PATIENT:KRUNAL JAMES DATE OF SERVICE: 06/26/18 SEX: M MEDICAL RECORD: [id number] DATE OF : 54 LOCATION:[facility] D230 AGE OF PATIENT: 67 ADMISSION DATE: 06/26/18 REFERRING PHYSICIAN: INTERPRETING PHYSICIAN: MARY QUARLES MD ECHOCARDIOGRAM REPORT ECHO CHARGES 5 ECHO LIMITED Date: 07/04/18 1 DOPPLER ECHO COLOR FLOW CLINICAL DIAGNOSIS: CHF ECHOCARDIOGRAPHIC MEASUREMENTS (adult normal given) AC root (d.<3.7cm) 0 cm LV Septum d (<1.2 cm> 0 cm Valve Excursion 0 cm LV Septum (systole) 0 cm Left Atria (s.<4.0cm> 0 cm LVPW d(<1.2cm) 0 cm RV (d.<2.3cm) 0 cm LVPW (sytole) 0 cm LV diastole(<5.6CM) 0 cm MV E-F(>70mm/sec) 0 cm LV systole 0 cm LVOT Diameter 0 cm MV exc.(>10mm) cm Est.ejection fraction (50-75%) % DOPPLER: LVIT cm/sec A 0 cm/sec E 0 cm/sec LA cm/sec RVSP 84.7 mmHg LVOT 0 cm/sec AOP1/2T m/s Asc. Ao 0 cm/sec RVOT 0 cm/sec RA 0 cm/sec PA 0 cm/sec AV Gradient Peak 0 mmHg AV Mean 0 mmHg AV Area 0 cm MV Gradient Peak 0 mmHg MV Mean 0 mmHg MV Area cm COMMENTS: Ice Cream Van Vendor: Linda [facility] Wind Turbine Mechanic: 3 Dr. Wong TAPE# PACS Pericardial Effusion N DATE OF SERVICE: This is a limited 2D, color flow only with spectral Doppler across the tricuspid valve. Grossly, LVH appears present. LV internal dimensions are normal. There is paradoxical septal motion consistent with RV overload. Overall, LV function reduced at 40% to 45%. Prosthetic tissue aortic valve is noted with probably mild aortic insufficiency. Prosthetic mitral valve is noted with probably mild mitral insufficiency. Right-sided chambers are obviously dilated. Moderate TR. RV systolic pressure is estimated greater than or equal to 85 mmHg via the continuity equation. ECHOCARDIOGRAM REPORT [id number] KRUNAL JAMES TRANSINT:[id number] Voice Confirmation ID: [id number] DOCUMENT ID: [id number] MARY QUARLES MD at 1313 CC: [id number] DICTATION DATE: 07/04/18 1214 HOG DROPPER: 07/04/18 1304 DIS IN 07/04/18 [place] [id number] [place] [id number]
== END 2018-07-04 22:37 | DRG 871 ==
LOC: D.ER 19:20 → D.ICU 21:32 → D.M3 21:32 → D.EDHOLD 21:32 → D.M3 22:43 → D.ICU 07-04 10:40
PROVIDERS: Family Medicine; ADMIT Internal Medicine Nephrology; ATTEND Internal Medicine Nephrology
PROC: 02HV33Z Insertion of Infusion Device into Superior Vena Cava, Percutaneous Approach (ICD-10-PCS; principal; 2018-07-04)
DX: A41.9 Sepsis, unspecified organism (principal); J96.01 Acute respiratory failure with hypoxia; N17.0 Acute kidney failure with tubular necrosis; G92 Toxic encephalopathy; R65.21 Severe sepsis with septic shock; J18.1 Lobar pneumonia, unspecified organism; I50.23 Acute on chronic systolic (congestive) heart failure; J44.0 Chronic obstructive pulmonary disease with (acute) lower respiratory infection; I42.9 Cardiomyopathy, unspecified; I11.0 Hypertensive heart disease with heart failure; I48.91 Unspecified atrial fibrillation; E78.5 Hyperlipidemia, unspecified; Z79.01 Long term (current) use of anticoagulants; D64.9 Anemia, unspecified; E87.5 Hyperkalemia; I27.20 Pulmonary hypertension, unspecified; K31.819 Angiodysplasia of stomach and duodenum without bleeding; N40.0 Benign prostatic hyperplasia without lower urinary tract symptoms